=== PATIENT | male | born 1960 | race African-American/Black ===

== ENCOUNTER 2019-04-28 22:57 | Emergency (ER) | payer OTHER ==
[2019-04-28 23:29] LABS: Absolute Lymphocytes (CBC) 3.9 K/uL (0.7-4.9); Basophils % 1.2 % (0-1.3); Hematocrit 47.7 % (39.6-49.0); MPV 7.6 fL (7.6-11.3); RBC Red Blood Cell Count 5.36 M/uL (4.33-5.43)
[2019-04-28 23:35] LABS: Protime INR 0.96
[2019-04-28 23:49] LABS: BUN Blood Urea Nitrogen 13 mg/dL (7-18); Bicarbonate 27 mmol/L (21-32); Glucose Level 99 mg/dL (74-106); Sodium Level 139 mmol/L (136-145); Troponin (Emerg Dept Use Only) < 0.02 ng/mL (0.0-0.045)
[2019-04-29] MEDS ORDERED: ASPIRIN 81 MG CHEWABLE TABLET ONE (00:34)
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
[2019-04-29 03:13] VITALS: TEMP 98.2
[2019-04-29 03:16] VITALS: BP 120/83; O2SAT 100
--- NOTE | 2019-04-29 05:30 | EKG ---
Test Date: 2019-04-28 Test Time: 23:21:21 Commercial Sales Specialist: KANDI MEASUREMENT RESULTS: Intervals: Rate: 78 VT: 188 QRSD: 96 QT: 362 QTc: 412 [place]: P: 67 VT: 188 QRS: 44 T: 105 INTERPRETIVE STATEMENTS: Normal sinus rhythm Normal ECG Compared to ECG 10/28/2017 00:38:59 no significant change from previous ECG Electronically Signed On 04-29-19 05:29:44 CDT by Abisai Sanchez
--- NOTE | 2019-04-29 08:17 | RAD REPORT ---
EXAM DESCRIPTION: Geoff Single View04/28/2019 11:35 pm CLINICAL HISTORY: Chest pain COMPARISON: 2013 FINDINGS: The lungs appear clear of acute infiltrate. The heart is normal size. Left hemidiaphragm remains elevated
--- NOTE | 2019-04-29 10:31 | RAD REPORT ---
EXAM DESCRIPTION: CT - Ct Stroke Brain Wo Cont - 04/29/2019 5:37 am CLINICAL HISTORY: NUMBNESS COMPARISON: None. TECHNIQUE: CT HEAD WITHOUT IV CONTRAST on 04/28/2019 11:17 PM CDT This exam was performed according to our departmental dose-optimization program, which includes autom ated exposure control, adjustment of the mA and/or kV according to patient size and/or use of iterati ve reconstruction technique. FINDINGS: There is no acute hemorrhage, mass effect or midline shift. Allen-white differentiation is preserved. There is no hydrocephalus. There is no significant volume loss for age. The calvarium is intact. Orbits and globes are unremarkable. The paranasal sinuses are clear. Mastoid air cells are clear. IMPRESSION: No acute intracranial findings. Electronically signed by: Didier Malik MD 04/28/2019 11:40 PM CDT Due to temporary technical issues with the PACS/Fluency reporting system, reports are being signed by the in house radiologist as a courtesy to ensure prompt reporting. The interpreting radiologist is f ully responsible for the content of the report.
== END 2019-04-29 02:16 | disposition short-term general hospital (02) ==
LOC: ER 22:57
DX: I63.9 Cerebral infarction, unspecified (principal); I10 Essential (primary) hypertension; R29.701 NIHSS score 1; E11.9 Type 2 diabetes mellitus without complications; E78.00 Pure hypercholesterolemia, unspecified; F31.9 Bipolar disorder, unspecified
CPT/HCPCS: 36415; 70450; 71045; 80048; 82962; 84484; 85025; 85610; 85730; 93005; 99285

== ENCOUNTER 2019-09-28 10:45 | Emergency (ER) | payer OTHER ==
--- OUTSIDE RECORDS SUMMARY | 2019-09-28 10:47 | XMS REPORT ---
:1960 Author Organization [facility] Address [address] [place] [address] Care Team Providers Name Role Phone REAGAN TO Unavailable Unavailable Problems This patient has no known problems. Allergies, Adverse Reactions, Alerts This patient has no known allergies or adverse reactions. Medications This patient has no known medications. Results Test Description Test Time Test Comments Text Results Atomic Results Result Comments POCT-GLUCOSE METER 2019-04-30 09:12:00 Test Item Value Reference Range Comments POC-GLUCOSE METER (BEAKER) (test 194 mg/dL 70-110 TESTED AT [place] [id number] [facility] goor=[id number]) [facility] [id number] POCT-GLUCOSE [id number] 21:24:00 Test Item Value Reference Range Comments POC-GLUCOSE METER (BEAKER) 145 mg/dL 70-110 TESTED AT [address] (test yzpe=0977) [facility] [id number] MR, BRAIN, WITHOUT [id number] 19:11:00FINAL REPORT MR, BRAIN, WITHOUT CONTRAST, MR, MRA, NECK, WITHOUT IV CONTRAST,MR, MRA , BRAIN, WITHOUT CONTRAST INDICATION: TIA, initial screening TECHNIQUE: Multiplanar, multisequence MR images of the brain. 3-D time of flight MRA of the cranial and cervical circulation. 2-D time of flight MRA of the neck. 3D MIP angiographic post-processing was performed. Stenosis evaluation utilized NASCET criteria. COMPARISON: Noncontrast brain CT of the same date FINDINGS: MRI BRAIN: Brain parenchyma is normal in morphology. Midline structures are normally developed. No restricted diffusion to suggest recent ischemic insult. No abnormal susceptibility. Scattered T2/FLAIR hyperintense foci within the periventricular and subcortical white matter are nonspecific, however, statistically represent chronic microvascular ischemic changes. No hydrocephalus. Orbits are within normal limits. No obstructive paranasal sinus disease. Additional findings: None. MRA BRAIN:Internal carotid arteries: Normal flow related enhancement without flow-limiting stenosisMiddle cerebral arteries : Normal flow related enhancement within the bilateral MCA M1-M2 segments without flow limiting stenosisAnteriorcerebral arteries: Normal flow-related enhancement within the bilateral SAYRA A1-A2 segments without flow limiting stenosisBasilar system: Normal flow-related enhancement within the bilateral V4 segmentsand the basilar artery without flow-limiting stenosis Posterior cerebral arteries: Normal flow-related enhancement within the bilateral [employer] P1- P2 segments without flow-limiting stenosisAdditional findings: None. MRA NECK: Common carotid arteries: Unremarkable. Bifurcations: No flow-limiting stenosis.Cervical internal carotid arteries: No flow limiting stenosis.Vertebral arteries: Origins are not well-seen. No flow limiting stenosis within the visualized cervical vertebral arterial segments. Limited assessment of the V3 segment secondary to noncontrast technique. IMPRESSION: No acute ischemia or parenchymal hemorrhage. No flow limiting stenosis in the major branch vessels of the cervical or cranial circulation. Signed: Vanna Camacho MDReport Verified Date/Time: 04/29/2019 19:11:42 Reading Location: [address] Neuro Reading Room MR, MRA, BRAIN, WITHOUT [id number] 19:11: 00FINAL REPORT MR, BRAIN, WITHOUT CONTRAST, MR, MRA, NECK , WITHOUT IV CONTRAST,MR, MRA, BRAIN, WITHOUT CONTRAST INDICATION: TIA, initial screening TECHNIQUE: Multiplanar, multisequence MR images of the brain. 3-D time of flight MRA of the cranial and cervical circulation. 2-D time of flight MRA of the neck. 3D MIP angiographic post-processing was performed. Stenosis evaluation utilized NASCET criteria. COMPARISON: Noncontrast brain CT of the same date FINDINGS: MRI BRAIN: Brain parenchyma is normal in morphology. Midline structures are normally developed. No restricted diffusion to suggest recent ischemic insult. No abnormal susceptibility. Scattered T2/FLAIR hyperintense foci within the periventricular and subcortical white matter are nonspecific, however, statistically represent chronic microvascular ischemic changes. No hydrocephalus. Orbits are within normal limits. No obstructive paranasal sinus disease. Additional findings: None. MRA BRAIN:Internal carotid arteries: Normal flow related enhancement without flow-limiting stenosisMiddle cerebral arteries: Normal flow related enhancement within the bilateral MCA M1- M2 segments without flow limiting stenosisAnteriorcerebral arteries: Normal flow -related enhancement within the bilateral SAYRA A1-A2 segments without flow limiting stenosisBasilar system: Normal flow-related enhancement within the bilateral V4 segmentsand the basilar artery without flow-limiting stenosis Posterior cerebral arteries: Normal flow-related enhancement within the bilateral [employer] P1-P2 segments without flow-limiting stenosisAdditional findings : None. MRA NECK:Common carotid arteries: Unremarkable. Bifurcations: No flow- limiting stenosis.Cervical internal carotid arteries: No flow limiting stenosis.Vertebral arteries: Origins are not well-seen. No flow limiting stenosis within the visualized cervical vertebral arterial segments. Limited assessment of the V3 segment secondary to noncontrast technique. IMPRESSION: No acute ischemia or parenchymal hemorrhage. No flow limiting stenosis in the major branch vessels of the cervical or cranial circulation. Signed: Vanna Camacho MDReport Verified Date/Time: 04/29/2019 19:11:42 Reading Location: [address] Neuro Reading Room MR, MRA, NECK, WITHOUT IV [id number] 19:11: 00FINAL REPORT MR, BRAIN, WITHOUT CONTRAST, MR, MRA, NECK , WITHOUT IV CONTRAST,MR, MRA, BRAIN, WITHOUT CONTRAST INDICATION: TIA, initial screening TECHNIQUE: Multiplanar, multisequence MR images of the brain. 3-D time of flight MRA of the cranial and cervical circulation. 2-D time of flight MRA of the neck. 3D MIP angiographic post-processing was performed. Stenosis evaluation utilized NASCET criteria. COMPARISON: Noncontrast brain CT of the same date FINDINGS: MRI BRAIN: Brain parenchyma is normal in morphology. Midline structures are normally developed. No restricted diffusion to suggest recent ischemic insult. No abnormal susceptibility. Scattered T2/FLAIR hyperintense foci within the periventricular and subcortical white matter are nonspecific, however, statistically represent chronic microvascular ischemic changes. No hydrocephalus. Orbits are within normal limits. No obstructive paranasal sinus disease. Additional findings: None. MRA BRAIN:Internal carotid arteries: Normal flow related enhancement without flow-limiting stenosisMiddle cerebral arteries: Normal flow related enhancement within the bilateral MCA M1- M2 segments without flow limiting stenosisAnteriorcerebral arteries: Normal flow -related enhancement within the bilateral SAYRA A1-A2 segments without flow limiting stenosisBasilar system: Normal flow-related enhancement within the bilateral V4 segmentsand the basilar artery without flow-limiting stenosis Posterior cerebral arteries: Normal flow-related enhancement within the bilateral [employer] P1-P2 segments without flow-limiting stenosisAdditional findings : None. MRA NECK:Common carotid arteries: Unremarkable. Bifurcations: No flow- limiting stenosis.Cervical internal carotid arteries: No flow limiting stenosis.Vertebral arteries: Origins are not well-seen. No flow limiting stenosis within the visualized cervical vertebral arterial segments. Limited assessment of the V3 segment secondary to noncontrast technique. IMPRESSION: No acute ischemia or parenchymal hemorrhage. No flow limiting stenosis in the major branch vessels of the cervical or cranial circulation. Signed: Vanna Camacho Verified Date/Time: 04/29/2019 19:11:42 Reading Location: [address] Neuro Reading Room POCT-GLUCOSE [id number] 17:21:00 Test Item Value Reference Range Comments POC-GLUCOSE METER (BEAKER) 82 mg/dL 70-110 TESTED AT [address] (test dkxo=1406) [facility] [address] POCT-GLUCOSE [id number] 11:55:00 Test Item Value Reference Range Comments POC-GLUCOSE METER (BEAKER) 130 mg/dL 70-110 TESTED AT [address] (test uutu=8856) [facility] [address] [id number] 11:06:00 Test Item Value Reference Range Comments RPR SCREEN (BEAKER) (test hhxs=382) Nonreactive Nonreactive T4, [id number] 09:15:00 Test Item Value Reference Range Comments FREE T4 (BEAKER) (test ugzm=388) 1.19 ng/dL 0.70-1.48 HEMOGLOBIN [id number] 09:02:00 Test Item Value Reference Range Comments HEMOGLOBIN A1C (BEAKER) (test lbgb=412) 9.7 % 4.3-6.1 C-REACTIVE [id number] 07:45:00 Test Item Value Reference Range Comments C-REACTIVE PROTEIN (BEAKER) (test vuxr=932) 0.21 mg/dL 0.00-0.50 FastingLIPID [id number] 07:30:00 Test Item Value Reference Range Comments TRIGLYCERIDES (BEAKER) (test sdsg=317) 108 mg/dL CHOLESTEROL (BEAKER) (test jncx=043) 174 mg/dL HDL CHOLESTEROL (BEAKER) (test mfke=093) 43 mg/dL LDL CHOLESTEROL CALCULATED (BEAKER) (test 109 mg/dL lhqb=574) Triglyceride Reference Range: Low Risk <150 Borderline 150- 199 High Risk 200-499 Very High Risk >=500Cholesterol Reference Range: Low Risk <200 Borderline 200-239 High Risk > 240HDL Cholesterol Reference Range: Low Risk >=60 High Risk <40LDL Cholesterol Reference Range: Optimal <100 Near Optimal 100-129 Borderline 130-159 High 160-189 Very High >=190 FastingBASIC METABOLIC [id number] 07:30:00 Test Item Value Reference Range Comments SODIUM (BEAKER) (test 137 meq/L 136-145 croz=649) POTASSIUM (BEAKER) (test 4.0 meq/L 3.5-5.1 sekd=321) CHLORIDE (BEAKER) (test 106 meq/L 98-107 rope=956) CO2 (BEAKER) (test 24 meq/L 22-29 wthp=472) BLOOD UREA NITROGEN 12 mg/dL 7-21 (BEAKER) (test odmp=218) CREATININE (BEAKER) (test 0.70 mg/dL 0.57-1.25 eqsl=378) GLUCOSE RANDOM (BEAKER) 87 mg/dL 70-105 (test wgxj=519) CALCIUM (BEAKER) (test 8.9 mg/dL 8.4-10.2 vqcz=607) EGFR (BEAKER) (test 139 mL/min/1.73 sq m ESTIMATED GFR IS NOT uyem=3677) ACCURATE CREATININE CLEARANCE IN PREDICTING GLOMERULAR FILTRATION RATE. ESTIMATED GFR IS NOT APPLICABLE FOR DIALYSIS PATIENTS. FastingHEPATIC FUNCTION [id number] 07:30:00 Test Item Value Reference Range Comments TOTAL PROTEIN (BEAKER) (test cqzc=662) 7.0 gm/dL 6.0-8.3 ALBUMIN (BEAKER) (test qpsc=6764) 3.5 g/dL 3.5-5.0 BILIRUBIN TOTAL (BEAKER) (test bbhn=645) 0.4 mg/dL 0.2-1.2 BILIRUBIN DIRECT (BEAKER) (test cdyf=291) 0.2 mg/dL 0.1-0.5 ALKALINE PHOSPHATASE (BEAKER) (test bhqm=815) 53 U/L 40-150 AST (SGOT) (BEAKER) (test ytrk=203) 21 U/L 5-34 ALT (SGPT) (BEAKER) (test xiut=907) 42 U/L 6-55 [id number] 07:22:00 Test Item Value Reference Range Comments HOMOCYSTEINE (BEAKER) (test lxwx=816) 8.2 umol/L 5.1-15.4 TSH/FREE T4 IF [id number] 07:21:00 Test Item Value Reference Range Comments THYROID STIMULATING HORMONE (BEAKER) (test 0.00 uIU/mL 0.35-4.94 nljb=355) VITAMIN B12 AND [id number] 07:03:00 Test Item Value Reference Range Comments VITAMIN B12 (BEAKER) (test isgt=488) 295 pg/mL 213-816 FOLATE (BEAKER) (test syhz=215) 16.3 ng/mL >=7.0 TROPONIN [id number] 06:25:00 Test Item Value Reference Range Comments TROPONIN I (BEAKER) (test mpim=743) < ng/mL 0.00-0.03 Troponin I (TnI) levels must be interpreted in the context of the presenting symptoms and the clinical findings. Elevated TnI levels indicate myocardial damage, but are not specific for ischemic heart disease. Elevated TnI levels are seen in patients with other cardiac conditions (including myocarditis and congestive heart failure), and slight TnI elevations occur in patients with other conditions, including sepsis, renal failure, acidosis, acute neurological disease, and persistent tachyarrhythmia.FastingPROTHROMBIN [id number] 05 :45:00 Test Item Value Reference Range Comments PROTIME (BEAKER) (test tyye=471) 13.5 seconds 11.9-14.2 INR (BEAKER) (test wiun=212) 1.1 <=5.9 Effective 02/17/2019: PT Reference Range ChangeNew: 11.9-14.2 Previous: 11.7- 14.7RECOMMENDED COUMADIN/WARFARIN INR THERAPY RANGESSTANDARD DOSE: 2.0-3.0 Includes: PROPHYLAXIS for venous thrombosis, systemic embolization; TREATMENT for venous thrombosis and/or pulmonary embolus.HIGH RISK: Target INR is2.5-3.5 for patients wiht mechanical heart valves.CBC W/PLT COUNT & AUTO [id number] 05:42:00 Test Item Value Reference Range Comments WHITE BLOOD CELL COUNT (BEAKER) (test zczd=167) 9.2 K/ L 3.5-10.5 RED BLOOD CELL COUNT (BEAKER) (test vjlh=250) 5.04 M/ L 4.63-6.08 HEMOGLOBIN (BEAKER) (test jjub=390) 14.6 GM/DL 13.7-17.5 HEMATOCRIT (BEAKER) (test gbqw=510) 46.2 % 40.1-51.0 MEAN CORPUSCULAR VOLUME (BEAKER) (test ejnx=772) 91.7 fL 79.0-92.2 MEAN CORPUSCULAR HEMOGLOBIN (BEAKER) (test 29.0 pg 25.7-32.2 rawv=348) MEAN CORPUSCULAR HEMOGLOBIN CONC (BEAKER) (test 31.6 GM/DL 32.3-36.5 qejf=871) RED CELL DISTRIBUTION WIDTH (BEAKER) (test 13.4 % 11.6-14.4 goue=994) PLATELET COUNT (BEAKER) (test aumk=350) 328 K/CU MM 150-450 MEAN PLATELET VOLUME (BEAKER) (test snro=041) 9.1 fL 9.4-12.4 NUCLEATED RED BLOOD CELLS (BEAKER) (test 0 /100 WBC 0-0 mdex=696) NEUTROPHILS RELATIVE PERCENT (BEAKER) (test 47 % dkow=830) LYMPHOCYTES RELATIVE PERCENT (BEAKER) (test 42 % klpi=017) MONOCYTES RELATIVE PERCENT (BEAKER) (test 9 % fipo=175) EOSINOPHILS RELATIVE PERCENT (BEAKER) (test 2 % ofqa=111) BASOPHILS RELATIVE PERCENT (BEAKER) (test 1 % frvp=122) NEUTROPHILS ABSOLUTE COUNT (BEAKER) (test 4.28 K/ L 1.78-5.38 ueji=901) LYMPHOCYTES ABSOLUTE COUNT (BEAKER) (test 3.82 K/ L 1.32-3.57 nzfo=402) MONOCYTES ABSOLUTE COUNT (BEAKER) (test 0.79 K/ L 0.30-0.82 vijd=047) EOSINOPHILS ABSOLUTE COUNT (BEAKER) (test 0.21 K/ L 0.04-0.54 aizq=223) BASOPHILS ABSOLUTE COUNT (BEAKER) (test 0.06 K/ L 0.01-0.08 veic=937) IMMATURE GRANULOCYTES-RELATIVE PERCENT (BEAKER) 0 % 0-1 (test fpaw=8188)
[2019-09-28] MEDS ORDERED: OXYMETAZOLINE HCL 0.05% 15ML NAS ONE (11:13)
--- NOTE | 2019-09-28 11:56 | EDPHYS ---
Physician Documentation [facility] Name: Pee Lopez Age: 59 yrs Sex: Male : 1960 Arrival Date: 09/28/2019 Time: 10:47 Bed 25 Private MD: ED Physician Mandeep Davila HPI: 09/28 21:51 This 59 yrs old Black Male presents to ER via Ambulatory with complaints of Nose Bleed. tw4 21:51 The patient presents with a nose bleed, that is apparently anterior, from the left tw4 nare. Onset: The symptoms/episode began/occurred. 21:51 Onset: The symptoms/episode began/occurred 3 day(s) ago. Modifying factors: The tw4 symptoms are alleviated by nothing. the symptoms are aggravated by nothing. Severity of symptoms: At their worst the symptoms were mild in the emergency department the symptoms have improved. The patient has not experienced similar symptoms in the past. Historical: - Allergies: 11: No Known Allergies; iw - Home Meds: 11:08 Baslugar 8 unit twice a day [Active]; lisinopril 20 mg Oral tab 1 tab once daily iw [Active]; aspirin 81 mg Oral TbEC 1 tab once daily [Active]; glimepiride 1 mg Oral tab 2 tabs three times a day [Active]; rivastigmine 4.6 mg/24 hr transdermal pt24 1 patch once daily [Active]; metformin 500 mg Oral tab 1 tab 2 times per day [Active]; atorvastatin 10 mg oral tab 1 tab once daily [Active]; fluoxetine 20 mg Oral cap 1 cap once daily [Active]; Novolog 100 unit/mL Sub-Q soln [Active]; - PMHx: 11:08 benign tremors; Bipolar disorder; Diabetes - IDDM; High Cholesterol; Hypertension; TIA; iw bowel obstruction; - 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 - Social history:: Smoking status: Patient/guardian denies using tobacco. - Ebola Screening: : Patient negative for fever greater than or equal to 101.5 degrees Fahrenheit, and additional compatible Ebola Virus Disease symptoms Patient denies exposure to infectious person Patient denies travel to an Ebola-affected area in the 21 days before illness onset No symptoms or risks identified at this time. ROS: 21:51 Constitutional: Negative for fever, chills, and weight loss, Eyes: Negative for injury, tw4 pain, redness, and discharge, Cardiovascular: Negative for chest pain, palpitations, and edema, Respiratory: Negative for shortness of breath, cough, wheezing, and pleuritic chest pain, Abdomen/GI: Negative for abdominal pain, nausea, vomiting, diarrhea, and constipation, Back: Negative for injury and pain, MS/Extremity: Negative for injury and deformity, Skin: Negative for injury, rash, and discoloration. 21:51 ENT: Positive for nose bleed, Negative for injury or acute deformity, drainage from ear(s), ear pain, Gum pain hearing loss, pulling at ears, Teeth pain tinnitus. Exam: 21:51 Constitutional: This is a well developed, well nourished patient who is awake, alert, tw4 and in no acute distress. Head/Face: Normocephalic, atraumatic. 21:51 ENT: Nose: bleeding, is seen from the left nare, and is minimal, clotted blood, in left nare. Vital Signs: 11:08 BP 137 / 101; Pulse 79; Resp 16 S; Temp 98.0; Pulse Ox 97% on R/A; Weight 104.33 kg; iw Height 5 ft. 11 in. (180.34 cm); 12:09 BP 123 / 88; Pulse 82; Resp 18; Pulse Ox 97% on R/A; aj1 11:08 Body Mass Index 32.08 (104.33 kg, 180.34 cm) iw Procedures: 21:51 Epistaxis treatment: A small amount of bleeding noted from Treated using rhino rocket, tw4 Bleeding stopped. MDM: 10:55 Patient medically screened. tw4 21:51 Differential diagnosis: trauma, sinusitis, epistaxis r/t trauma, spontaneous epistaxis. tw4 Data reviewed: vital signs, nurses notes. Counseling: I had a detailed discussion with the patient and/or guardian regarding: the historical points, exam findings, and any diagnostic results supporting the discharge/admit diagnosis. Administered Medications: 11:30 Drug: Afrin Drops (0.05 %) 1 sprays Route: Intranasal; Site: both nares; aj1 12:11 Follow up: Response: No adverse reaction aj1 Disposition: 09/28/19 11:53 Discharged to Home. Impression: Epistaxis. - Condition is Stable. - Discharge Instructions: Nosebleed, Adult. - Medication Reconciliation Form, Thank You Letter, Antibiotic Education, Prescription Opioid Use form. - Follow up: Vivi Henderson MD; When: Upon discharge from the Emergency Department; Reason: Recheck today's complaints, Continuance of care. - Problem is new. - Symptoms have improved. Signatures: Drea Funez RN RN aj1 Carmen Metcalf RN RN iw Wadley, Terrence, MD MD tw4 Corrections: (The following items were deleted from the chart) 12:11 11:53 09/28/2019 11:53 Discharged to Home. Impression: Epistaxis. Condition is Stable. aj1 Forms are Medication Reconciliation Form, Thank You Letter, Antibiotic Education, Prescription Opioid Use. Follow up: Vivi Henderson; When: Upon discharge from the Emergency Department; Reason: Recheck today's complaints, Continuance of care. Problem is new. Symptoms have improved. tw4
--- NOTE | 2019-09-28 11:56 | ER ---
Nurse's Notes [facility] Name: Pee Lopez Age: 59 yrs Sex: Male : 1960 Arrival Date: 09/28/2019 Time: 10:47 Bed 25 Private MD: Diagnosis: Epistaxis Presentation: 09/28 11:00 Presenting complaint: Patient states: nose bleed X 3 days, couldn't get it to stop iw today, left nostril, takes ASA daily but stopped 2 days ago after nose started bleeding. Transition of care: patient was not received from another setting of care. Onset of symptoms was September 25, 2019. Risk Assessment: Do you want to hurt yourself or someone else?. Initial Sepsis Screen: Does the patient meet any 2 criteria? No. Patient's initial sepsis screen is negative. Does the patient have a suspected source of infection? No. Patient's initial sepsis screen is negative. Care prior to arrival: None. 11:00 Method Of Arrival: Ambulatory iw 11:00 Acuity: VINCE 4 iw Historical: - Allergies: 11:08 No Known Allergies; iw - Home Meds: 11:08 Baslugar 8 unit twice a day [Active]; lisinopril 20 mg Oral tab 1 tab once daily iw [Active]; aspirin 81 mg Oral TbEC 1 tab once daily [Active]; glimepiride 1 mg Oral tab 2 tabs three times a day [Active]; rivastigmine 4.6 mg/24 hr transdermal pt24 1 patch once daily [Active]; metformin 500 mg Oral tab 1 tab 2 times per day [Active]; atorvastatin 10 mg oral tab 1 tab once daily [Active]; fluoxetine 20 mg Oral cap 1 cap once daily [Active]; Novolog 100 unit/mL Sub-Q soln [Active]; - PMHx: 11:08 benign tremors; Bipolar disorder; Diabetes - IDDM; High Cholesterol; Hypertension; TIA; iw bowel obstruction; - 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 - Social history:: Smoking status: Patient/guardian denies using tobacco. - Ebola Screening: : Patient negative for fever greater than or equal to 101.5 degrees Fahrenheit, and additional compatible Ebola Virus Disease symptoms Patient denies exposure to infectious person Patient denies travel to an Ebola-affected area in the 21 days before illness onset No symptoms or risks identified at this time. Screenin:22 Abuse screen: Denies threats or abuse. Denies injuries from another. Nutritional aj1 screening: No deficits noted. Tuberculosis screening: No symptoms or risk factors identified. 12:10 Fall Risk None identified. aj1 Assessment: 11:22 General: Appears in no apparent distress. Behavior is calm, cooperative, appropriate aj1 for age. Pain: Denies pain. Neuro: Level of Consciousness is awake, alert, obeys commands, Oriented to person, place, time, situation. Cardiovascular: Patient's skin is warm and dry. Cardiovascular:. Respiratory: Airway is patent Respiratory effort is even, unlabored, Respiratory pattern is regular, symmetrical. GI: No signs and/or symptoms were reported involving the gastrointestinal system. : No signs and/or symptoms were reported regarding the genitourinary system. EENT: Reports intermittent nose bleed for the past 3 days, no bleeding noted at this time. Derm: No signs and/or symptoms reported regarding the dermatologic system. Skin is pink, warm \\T\\ dry. normal. Musculoskeletal: No signs and/or symptoms reported regarding the musculoskeletal system. Circulation, motion, and sensation intact. 12:00 Reassessment: Dr Davila at bedside to insert nasal packing. aj1 Vital Signs: 11:08 BP 137 / 101; Pulse 79; Resp 16 S; Temp 98.0; Pulse Ox 97% on R/A; Weight 104.33 kg; iw Height 5 ft. 11 in. (180.34 cm); 12:09 BP 123 / 88; Pulse 82; Resp 18; Pulse Ox 97% on R/A; aj1 11:08 Body Mass Index 32.08 (104.33 kg, 180.34 cm) iw ED Course: 10:47 Patient arrived in ED. as 10:55 Mandeep Davila MD is Attending Physician. tw4 10:56 Patient has correct armband on for positive identification. Bed in low position. Call jp3 light in reach. Side rails up X 1. Verbal reassurance given. Pulse ox on. NIBP on. 11:03 Drea Funez, MIGEL is Primary Nurse. aj1 11:04 Triage completed. iw 11:08 Diet: Patient given water. Tolerated well. jp3 11:09 patient given water to "gargle" and rinse back of throat out. Patient reported the jp3 "gargling" helped clear their throat out. 11:22 No provider procedures requiring assistance completed. aj1 11:53 Vivi Henderson MD is Referral Physician. tw4 12:10 Arm band placed on. aj1 12:10 Patient did not have IV access during this emergency room visit. aj1 Administered Medications: 11:30 Drug: Afrin Drops (0.05 %) 1 sprays Route: Intranasal; Site: both nares; aj1 12:11 Follow up: Response: No adverse reaction aj1 Outcome: 11:53 Discharge ordered by . tw4 12:10 Discharged to home ambulatory. aj1 12:10 Condition: good 12:10 Discharge instructions given to patient, Instructed on discharge instructions, follow up and referral plans. Patient was instructed to go straight to Dr. Henderson's office Demonstrated understanding of instructions, follow-up care. 12:11 Patient left the ED. aj1 Signatures: Drea Funez, RN RN Angle Price Irene, RN Mandeep Subramanian MD MD tw4 Deejay Heath jp3
[2019-09-28 12:27] VITALS: TEMP 98; O2SAT 97
[2019-09-28 12:29] VITALS: BP 123/88
== END 2019-09-28 12:11 | disposition home or self-care (01) ==
LOC: ER 10:45
PROC: 2Y41X5Z Packing of Nasal Region using Packing Material (ICD-10-PCS; principal; 2019-09-28)
DX: R04.0 Epistaxis (principal); I10 Essential (primary) hypertension; E11.9 Type 2 diabetes mellitus without complications; E78.00 Pure hypercholesterolemia, unspecified; Z86.73 Personal history of transient ischemic attack (TIA), and cerebral infarction without residual deficits
CPT/HCPCS: 30901; 99283

== ENCOUNTER 2019-09-28 18:12 | Emergency (ER) | payer OTHER ==
--- OUTSIDE RECORDS SUMMARY | 2019-09-28 18:14 | XMS REPORT ---
:1960 [facility] Address [address] [place] [address] Care Team Providers Name Role Phone REAGAN [...] (BEAKER) (test 194 mg/dL 70-110 TESTED AT [place] [id number] [facility] [id number]=[id number]) [facility] [address] POCT-GLUCOSE [id number] 21:24:00 Test Item Value Reference Range Comments POC-GLUCOSE METER (BEAKER) 145 mg/dL 70-110 TESTED AT [address] (test ybga=3697) [facility] [address] MR, BRAIN, WITHOUT [id number] 19:11:00FINAL REPORT MR, BRAIN, WITHOUT CONTRAST, MR, [...] arteries: Normal flow-related enhancement within the bilateral BLOCKER HAND P1- P2 segments without flow-limiting stenosisAdditional findings: [...] MDReport Verified Date/Time: 04/29/2019 19:11:42 Reading Location: [address] Neuro Reading Room MR, MRA, BRAIN, WITHOUT [id number] 19:11: 00FINAL REPORT MR, BRAIN, WITHOUT CONTRAST, [...] arteries: Normal flow-related enhancement within the bilateral BLOCKER HAND P1-P2 segments without flow-limiting stenosisAdditional findings : [...] MDReport Verified Date/Time: 04/29/2019 19:11:42 Reading Location: [address] Neuro Reading Room MR, MRA, NECK, WITHOUT IV [id number] 19:11: 00FINAL REPORT MR, BRAIN, WITHOUT CONTRAST, [...] arteries: Normal flow-related enhancement within the bilateral BLOCKER HAND P1-P2 segments without flow-limiting stenosisAdditional findings : [...] Camacho Verified Date/Time: 04/29/2019 19:11:42 Reading Location: [address] Neuro Reading Room POCT-GLUCOSE [id number] 17:21:00 Test Item Value Reference Range Comments POC-GLUCOSE METER (BEAKER) 82 mg/dL 70-110 TESTED AT [address] (test xtji=6420) [facility] [address] POCT-GLUCOSE [id number] 11:55:00 Test Item Value Reference Range Comments POC-GLUCOSE METER (BEAKER) 130 mg/dL 70-110 TESTED AT [address] (test nqys=4621) [facility] [address] [id number] 11:06:00 Test Item Value Reference Range Comments RPR SCREEN (BEAKER) (test yoel=453) Nonreactive Nonreactive T4, [id number] 09:15:00 Test Item Value Reference Range Comments FREE T4 (BEAKER) (test vqte=585) 1.19 ng/dL 0.70-1.48 HEMOGLOBIN [id number] 09:02:00 Test Item Value Reference Range Comments HEMOGLOBIN A1C (BEAKER) (test goyx=550) 9.7 % 4.3-6.1 C-REACTIVE [id number] 07:45:00 Test Item Value Reference Range Comments C-REACTIVE PROTEIN (BEAKER) (test bcmb=479) 0.21 mg/dL 0.00-0.50 FastingLIPID [id number] 07:30:00 Test Item Value Reference Range Comments TRIGLYCERIDES (BEAKER) (test mvwy=032) 108 mg/dL CHOLESTEROL (BEAKER) (test ldbq=480) 174 mg/dL HDL CHOLESTEROL (BEAKER) (test gdei=279) 43 mg/dL LDL CHOLESTEROL CALCULATED (BEAKER) (test 109 mg/dL mfgw=996) Triglyceride Reference Range: Low Risk <150 Borderline 150- 199 High Risk 200-499 Very High Risk >=500Cholesterol Reference Range: Low Risk <200 Borderline 200-239 High Risk > 240HDL Cholesterol Reference Range: Low Risk >=60 High Risk <40LDL Cholesterol Reference Range: Optimal <100 Near Optimal 100-129 Borderline 130-159 High 160-189 Very High >=190 FastingBASIC METABOLIC [id number] 07:30:00 Test Item Value Reference Range Comments SODIUM (BEAKER) (test 137 meq/L 136-145 gssm=678) POTASSIUM (BEAKER) (test 4.0 meq/L 3.5-5.1 kpov=008) CHLORIDE (BEAKER) (test 106 meq/L 98-107 qrnr=046) CO2 (BEAKER) (test 24 meq/L 22-29 qtex=555) BLOOD UREA NITROGEN 12 mg/dL 7-21 (BEAKER) (test ivjv=795) CREATININE (BEAKER) (test 0.70 mg/dL 0.57-1.25 jqtw=417) GLUCOSE RANDOM (BEAKER) 87 mg/dL 70-105 (test dhvm=809) CALCIUM (BEAKER) (test 8.9 mg/dL 8.4-10.2 hrog=503) EGFR (BEAKER) (test 139 mL/min/1.73 sq m ESTIMATED GFR IS NOT rffa=7551) ACCURATE CREATININE CLEARANCE IN PREDICTING GLOMERULAR FILTRATION RATE. ESTIMATED GFR IS NOT APPLICABLE FOR DIALYSIS PATIENTS. FastingHEPATIC FUNCTION [id number] 07:30:00 Test Item Value Reference Range Comments TOTAL PROTEIN (BEAKER) (test zxtz=207) 7.0 gm/dL 6.0-8.3 ALBUMIN (BEAKER) (test msbq=8662) 3.5 g/dL 3.5-5.0 BILIRUBIN TOTAL (BEAKER) (test kydm=934) 0.4 mg/dL 0.2-1.2 BILIRUBIN DIRECT (BEAKER) (test fujg=375) 0.2 mg/dL 0.1-0.5 ALKALINE PHOSPHATASE (BEAKER) (test efhl=491) 53 U/L 40-150 AST (SGOT) (BEAKER) (test bpjc=717) 21 U/L 5-34 ALT (SGPT) (BEAKER) (test sarj=527) 42 U/L 6-55 [id number] 07:22:00 Test Item Value Reference Range Comments HOMOCYSTEINE (BEAKER) (test wjck=245) 8.2 umol/L 5.1-15.4 TSH/FREE T4 IF [id number] 07:21:00 Test Item Value Reference Range Comments THYROID STIMULATING HORMONE (BEAKER) (test 0.00 uIU/mL 0.35-4.94 wxme=616) VITAMIN B12 AND [id number] 07:03:00 Test Item Value Reference Range Comments VITAMIN B12 (BEAKER) (test fmwu=628) 295 pg/mL 213-816 FOLATE (BEAKER) (test dhfo=445) 16.3 ng/mL >=7.0 TROPONIN [id number] 06:25:00 Test Item Value Reference Range Comments TROPONIN I (BEAKER) (test pwjf=087) < ng/mL 0.00-0.03 Troponin I (TnI) levels [...] acidosis, acute neurological disease, and persistent tachyarrhythmia.FastingPROTHROMBIN [id number] 05 :45:00 Test Item Value Reference Range Comments PROTIME (BEAKER) (test ldar=435) 13.5 seconds 11.9-14.2 INR (BEAKER) (test qltr=054) 1.1 <=5.9 Effective 02/17/2019: PT Reference Range ChangeNew: 11.9-14.2 Previous: 11.7- 14.7RECOMMENDED COUMADIN/WARFARIN INR THERAPY RANGESSTANDARD DOSE: 2.0-3.0 Includes: PROPHYLAXIS for venous thrombosis, systemic embolization; TREATMENT for venous thrombosis and/or pulmonary embolus.HIGH RISK: Target INR is2.5-3.5 for patients wiht mechanical heart valves.CBC W/PLT COUNT & AUTO [id number] 05:42:00 Test Item Value Reference Range Comments WHITE BLOOD CELL COUNT (BEAKER) (test vnua=356) 9.2 K/ L 3.5-10.5 RED BLOOD CELL COUNT (BEAKER) (test eguc=609) 5.04 M/ L 4.63-6.08 HEMOGLOBIN (BEAKER) (test dmik=392) 14.6 GM/DL 13.7-17.5 HEMATOCRIT (BEAKER) (test nijo=948) 46.2 % 40.1-51.0 MEAN CORPUSCULAR VOLUME (BEAKER) (test saqy=570) 91.7 fL 79.0-92.2 MEAN CORPUSCULAR HEMOGLOBIN (BEAKER) (test 29.0 pg 25.7-32.2 lguq=192) MEAN CORPUSCULAR HEMOGLOBIN CONC (BEAKER) (test 31.6 GM/DL 32.3-36.5 fvqm=014) RED CELL DISTRIBUTION WIDTH (BEAKER) (test 13.4 % 11.6-14.4 isfm=636) PLATELET COUNT (BEAKER) (test beki=731) 328 K/CU MM 150-450 MEAN PLATELET VOLUME (BEAKER) (test ggdg=933) 9.1 fL 9.4-12.4 NUCLEATED RED BLOOD CELLS (BEAKER) (test 0 /100 WBC 0-0 ienz=046) NEUTROPHILS RELATIVE PERCENT (BEAKER) (test 47 % quvl=145) LYMPHOCYTES RELATIVE PERCENT (BEAKER) (test 42 % owgd=943) MONOCYTES RELATIVE PERCENT (BEAKER) (test 9 % xxgf=458) EOSINOPHILS RELATIVE PERCENT (BEAKER) (test 2 % vjuz=186) BASOPHILS RELATIVE PERCENT (BEAKER) (test 1 % aonk=371) NEUTROPHILS ABSOLUTE COUNT (BEAKER) (test 4.28 K/ L 1.78-5.38 pxhf=484) LYMPHOCYTES ABSOLUTE COUNT (BEAKER) (test 3.82 K/ L 1.32-3.57 sigo=952) MONOCYTES ABSOLUTE COUNT (BEAKER) (test 0.79 K/ L 0.30-0.82 plge=560) EOSINOPHILS ABSOLUTE COUNT (BEAKER) (test 0.21 K/ L 0.04-0.54 cgdi=404) BASOPHILS ABSOLUTE COUNT (BEAKER) (test 0.06 K/ L 0.01-0.08 ozqj=624) IMMATURE GRANULOCYTES-RELATIVE PERCENT (BEAKER) 0 % 0-1 (test yngg=4685)
[2019-09-28 18:49] LABS: Absolute Lymphocytes (CBC) 3.1 K/uL (0.7-4.9); Basophils % 0.1 % (0-1.3); Hematocrit 42.5 % (39.6-49.0); RBC Red Blood Cell Count 4.81 M/uL (4.33-5.43)
[2019-09-28] MEDS ORDERED: PHENYLEPHRINE 0.5% NOSE 15ML NAS ONE (18:51)
[2019-09-28 18:52] LABS: Protime INR 1.04
[2019-09-28 19:07] LABS: Albumin 3.1 g/dL (3.4-5.0); Bilirubin Total 0.4 mg/dL (0.2-1.0); Potassium 4.3 mmol/L (3.5-5.1); Protein, Total 7.4 g/dL (6.4-8.2)
[2019-09-28] MEDS ORDERED: TRANEXAMIC ACID 1,000 MG/10 ML VIAL IV ONE (19:25)
--- NOTE | 2019-09-28 20:59 | ER ---
Nurse's Notes [facility] Name: Pee Lopez Age: 59 yrs Sex: Male : 1960 Arrival Date: 09/28/2019 Time: 18:15 Bed 27 Private MD: Jim Hernandez R Diagnosis: Epistaxis Presentation: 09/28 18:17 Presenting complaint: Patient states: "I was here earlier for a nose bleed and they put aa5 this thing in my nose but I am still bleeding around it". Pt denies taking anticoagulants. Pt states "also my stools have been dark". Transition of care: patient was not received from another setting of care. Onset of symptoms was September 2019. Risk Assessment: Do you want to hurt yourself or someone else? Patient reports no desire to harm self or others. Initial Sepsis Screen: Does the patient meet any 2 criteria? No. Patient's initial sepsis screen is negative. Does the patient have a suspected source of infection? No. Patient's initial sepsis screen is negative. Care prior to arrival: None. 18:17 Acuity: VINCE 3 aa5 18:17 Method Of Arrival: Ambulatory aa5 Triage Assessment: 21:12 General: Behavior is calm. 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 - Social history:: Smoking status: Patient/guardian denies using tobacco. - Ebola Screening: : No symptoms or risks identified at this time. Screenin:12 Abuse screen: Denies threats or abuse. Denies injuries from another. Nutritional rv screening: No deficits noted. Tuberculosis screening: No symptoms or risk factors identified. Fall Risk None identified. Assessment: 20:00 General: Appears in no apparent distress. rv 20:00 Pain: Complains of pain in head. Neuro: Level of Consciousness is awake, alert, obeys rv commands, Oriented to person, place, time, situation. Cardiovascular: Patient's skin is warm and dry. Respiratory: Airway is patent. EENT: Nares with bleeding noted on right on left. Vital Signs: 18:19 BP 145 / 84; Pulse 91; Resp 18 S; Temp 98.5(TE); Pulse Ox 96% on R/A; Weight 104.33 kg aa5 (R); Height 5 ft. 11 in. (180.34 cm) (R); 21:13 BP 138 / 86; Pulse 87; Resp 18; Pulse Ox 97% on R/A; rv 18:19 Body Mass Index 32.08 (104.33 kg, 180.34 cm) aa5 ED Course: 18:15 Patient arrived in ED. mr 18:15 Jim Hernandez MD is Private Physician. mr 18:17 Arm band placed on. aa5 18:18 Triage completed. aa5 18:32 Mandeep Bernard MD is Attending Physician. tw4 19:29 Bg Ross, MIGEL is Primary Nurse. rv 20:55 Jim Hernandez MD is Referral Physician. tw4 20:55 Vivi Henderson MD is Referral Physician. tw4 21:12 Patient has correct armband on for positive identification. media monitor on. Pulse rv ox on. NIBP on. 21:12 Assist provider with nosebleed control using Afrin sprays, Bleeding from left nare. Set rv up for procedure. Performed by Mandeep Beranrd MD Bleeding stopped. Patient tolerated well. Patient did not have IV access during this emergency room visit. Administered Medications: 20:10 Drug: Tranexamic Acid 2000 mg {Note: DR BERNARD SOAKED THE GAUZE WITH THE TRANEXAMIC rv ACID AND USED IT NASAL PACKING.} Route: Intranasal; Site: left nare; 21:13 Follow up: Response: No adverse reaction rv Outcome: 20:55 Discharge ordered by . tw4 21:13 Discharged to home ambulatory, with family. rv 21:13 Condition: good 21:13 Discharge instructions given to patient, Instructed on discharge instructions, follow up and referral plans. Demonstrated understanding of instructions, follow-up care. 21:13 Patient left the ED. rv Signatures: Nisha MakShelly, RN RN aa5 Mandeep Bernard MD MD tw4 Bg Ross RN RN rv
--- NOTE | 2019-09-28 21:00 | EDPHYS ---
Physician Documentation [facility] Name: Pee Lopez Age: 59 yrs Sex: Male : 1960 Arrival Date: 09/28/2019 Time: 18:15 Bed 27 Private MD: Jim Hernandez R ED Physician Mandeep Bernard HPI: 09/28 20:19 This 59 yrs old Black Male presents to ER via Ambulatory with complaints of Nose Bleed. tw4 20:19 The patient presents with a nose bleed, that is apparently anterior, from the left tw4 nare, from both nares. Onset: The symptoms/episode began/occurred just prior to arrival. Modifying factors: The symptoms are alleviated by nothing. the symptoms are aggravated by nothing. Associated signs and symptoms: The patient has no apparent associated signs or symptoms. The patient has been recently seen at the [facility] Emergency Department, today. The patient has been recently seen by a physician: Dr. Henderson earlier today. 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 - Social history:: Smoking status: Patient/guardian denies using tobacco. - Ebola Screening: : No symptoms or risks identified at this time. ROS: 20:19 Constitutional: Negative for fever, chills, and weight loss, Eyes: Negative for injury, tw4 pain, redness, and discharge. 20:19 Cardiovascular: Negative for chest pain, palpitations, and edema, Respiratory: Negative for shortness of breath, cough, wheezing, and pleuritic chest pain, Abdomen/GI: Negative for abdominal pain, nausea, vomiting, diarrhea, and constipation, Back: Negative for injury and pain, Neuro: Negative for headache, weakness, numbness, tingling, and seizure. 20:19 ENT: Positive for nose bleed. Exam: 20:19 Constitutional: This is a well developed, well nourished patient who is awake, alert, tw4 and in no acute distress. Head/Face: Normocephalic, atraumatic. 20:19 ENT: Nose: bleeding, is seen from the left nare, and is minimal, clotted blood, in left nare. Vital Signs: 18:19 BP 145 / 84; Pulse 91; Resp 18 S; Temp 98.5(TE); Pulse Ox 96% on R/A; Weight 104.33 kg aa5 (R); Height 5 ft. 11 in. (180.34 cm) (R); 21:13 BP 138 / 86; Pulse 87; Resp 18; Pulse Ox 97% on R/A; rv 18:19 Body Mass Index 32.08 (104.33 kg, 180.34 cm) aa5 Procedures: 21:34 Epistaxis treatment: A small amount of bleeding noted from both nares. Treated using tw4 Oxymetazoline sprays, traneaxmic acid gauze. MDM: 18:32 Patient medically screened. tw4 21:34 Differential diagnosis: trauma, sinusitis, spontaneous epistaxis. Data reviewed: vital tw4 signs, nurses notes. Data reviewed: lab test result(s), CBC, white blood cell count, hemoglobin, hematocrit, platelets. Data interpreted: Pulse oximetry: Interpretation: normal. Counseling: I had a detailed discussion with the patient and/or guardian regarding: the historical points, exam findings, and any diagnostic results supporting the discharge/admit diagnosis, lab results. Special discussion: I discussed with the patient/guardian in detail that at this point there is no indication for admission to the hospital. It is understood, however, that if the symptoms persist or worsen the patient needs to return immediately for re-evaluation. 09/28 18:33 Order name: CBC with Diff; Complete Time: 19:50 tw4 09/28 18:33 Order name: CMP; Complete Time: 19:50 tw4 09/28 19:50 Interpretation: Normal except: GLUC 220; BUN 22; GFR 89. tw4 09/28 18:33 Order name: PT-INR tw4 09/28 18:33 Order name: Ptt, Activated tw4 Administered Medications: 20:10 Drug: Tranexamic Acid 2000 mg {Note: DR BERNARD SOAKED THE GAUZE WITH THE TRANEXAMIC rv ACID AND USED IT NASAL PACKING.} Route: Intranasal; Site: left nare; 21:13 Follow up: Response: No adverse reaction rv Disposition: 09/28/19 20:55 Discharged to Home. Impression: Epistaxis. - Condition is Stable. - Discharge Instructions: Nosebleed, [id number]. - Medication Reconciliation Form, Thank You Letter, Antibiotic Education, Prescription Opioid Use form. - Follow up: Jim Hernandez MD; When: Upon discharge from the Emergency Department; Reason: Recheck today's complaints, Continuance of care. Follow up: Vivi Henderson MD; When: Upon discharge from the Emergency Department; Reason: Recheck today's complaints, Continuance of care. - Problem is an ongoing problem. - Symptoms have improved. Signatures: Dispatcher [employer] EDMS Shelly Robles, RN RN aa5 Mandeep Bernard MD MD tw4 Bg Ross RN RN rv Corrections: (The following items were deleted from the chart) 21:13 20:55 09/28/2019 20:55 Discharged to Home. Impression: Epistaxis. Condition is Stable. rv Forms are Medication Reconciliation Form, Thank You Letter, Antibiotic Education, Prescription Opioid Use. Follow up: Jim Hernandez; When: Upon discharge from the Emergency Department; Reason: Recheck today's complaints, Continuance of care. Follow up: Vivi Henderson; When: Upon discharge from the Emergency Department; Reason: Recheck today's complaints, Continuance of care. Problem is an ongoing problem. Symptoms have improved. tw4
[2019-09-28 21:23] VITALS: TEMP 98.5
[2019-09-28 21:24] VITALS: BP 138/86; O2SAT 97
== END 2019-09-28 21:13 | disposition home or self-care (01) ==
LOC: ER 18:12
DX: R04.0 Epistaxis (principal)
CPT/HCPCS: 30901; 36415; 80053; 85025; 85610; 85730; 99284

== ENCOUNTER 2020-07-11 18:56 | Emergency (ER) | payer OTHER ==
--- OUTSIDE RECORDS SUMMARY | 2020-07-11 18:59 | XMS REPORT | Clinical Summary ---
:1960 Author Organization [facility] Address [address] [place] [address] Care Team Providers Name Role Phone Unavailable Primary Care Provider Unavailable Allergies No Known Allergies Medications Medication Sig Dispensed Refills Start Date End Date Status metoprolol Take 100 mg by mouth 0 Active (LOPRESSOR) 100 MG daily. tablet glimepiride Take 2 mg by mouth 4 0 Active (AMARYL) 2 MG (four) times daily. tablet lisinopril Take 20 mg by mouth 0 Active (PRINIVIL,ZESTRIL) daily. 20 MG tablet FLUoxetine Take 20 mg by mouth 0 Active (PROZAC) 20 MG daily. tablet diazePAM (VALIUM) Take 5 mg by mouth 0 Active 5 MG tablet every night as needed for Anxiety. primidone Take 50 mg by mouth 0 Active (MYSOLINE) 50 MG daily. tabletIndications: take 3 tabs daily insulin glargine Inject 8-12 Units 0 Active (LANTUS) 100 subcutaneously unit/mL nightly Use as injectionIndicatio directed . ns: takes 8-12 units per blood sugar aspirin 81 MG EC Take 1 tablet (81 mg 30 tablet 5 04/30/2019 0 tablet total) by mouth 0 daily. atorvastatin Take 4 tablets (40 120 tablet 4 04/29/2019 (LIPITOR) 10 MG mg total) by mouth 0 tablet nightly. Active Problems Problem Noted Date TIA (transient ischemic attack) 04/29/2019 Family History Medical History Relation Name Comments Stroke Father Relation Name Status Comments Father Social History Tobacco Use Types Packs/Day Years Used Date Never Smoker Sex Assigned at Date Recorded Not on file Last Filed Vital Signs Not on file Plan of Treatment Not on file Results Not on fileafter 07/11/2019 Insurance Payer Benefit Plan / Subscriber ID Effective Dates Phone Addre ss Type Group [employer] TEX[employer] HMO [id number] 2018-[employer] [place] Contracted ALL t Advance Directives For more information, please contact: [phone] Code Status Date Activated Date Inactivated Comments Partial Code 04/29/2019 5:08 AM 04/30/2019 1:57 PM This code status was determined by: Patient Drug Protocol After Arrest Occurs? No Mechanical Ventilation with Intubation? No Bag/Mask? Yes Internal/External Pacemaker? Yes Transfer to Critical Care? Yes Chest Compressions? No Defibrillation/Cardioversion? No Full Code 04/29/2019 4:48 AM 04/29/2019 5:08 AM This code status was determined by: Patient
--- OUTSIDE RECORDS SUMMARY | 2020-07-11 18:59 | XMS REPORT | Summary of Care ---
:1960 Author Organization [facility] Address [address] [place] [address]- Encounter HQ Sendyr_matty(FIN) [id number] Date(s): 07/04/20 - 07/04/20 [facility] [address] [place] [address]- [phone] Discharge Disposition: Home or Self Care Attending Physician: Alex Dill MD Referring Physician: Alex iDll MD Vital Signs Most recent to oldest [Reference Range]: 1 Height 180.34 cm (07/04/20 11:51 AM) Blood Pressure [90-140/60-90 mmHg] 132/92 mmHg (07/04/20 11:51 AM) Respiratory Rate [14-20 BRMIN] 16 BRMIN (07/04/20 11:51 AM) Peripheral Pulse Rate [60-100 bpm] 100 bpm (07/04/20 11:51 AM) Weight 107.273 kg (07/04/20 11:51 AM) Body Mass Index 32.98 m2 (07/04/20 11:51 AM) Problem List Condition Effective Dates Status Health Status Informant Memory loss(Confirmed) Active Benign hypertension1 Active Benign prostatic hyperplasia2 01/12/08 Active Bipolar disorder3 Active Disorder of pancreas4 03/03/08 Active Hypercholesterolemia5 Active Hyperlipidemia6 Active Imaging of gastrointestinal tract 03/24/08 Active abnormal7 MCI (mild cognitive Active impairment)(Confirmed) 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 Nicotine dependence9 Active [id number] Active Simple obesity(Confirmed) Active Brain TIA(Confirmed) Active Tremor(Confirmed) Active Type 2 diabetes [id number] Active 1Data migrated from [employer] on 02/18/15.2Data migrated from [employer] on 02/18/15.3Data migrated from [employer] on 02/18/15.4Data migrated from [employer] on 02/18/15.5Data migrated from [employer] on 02/18/15.6Data migrated from [employer] on 02/18/15.7Data migrated from [employer] on 02/18/15.8Data migrated from [employer] on 02/18/15.9Data migrated from [employer] on 02/18/15.10Data migrated from [employer] on 02/18/15.11Data migrated from [employer] on 02/18/15. Allergies, Adverse Reactions, Alerts Substance Reaction Severity Status Tegretol Active carBAMazepine1, 2 Active 1Data migrated from [employer] on 01/19/15. Originally documented as CARBAMAZEPINE.2Data migrated from [employer] on 01/19/15. Originally documented as TEGRETOL. Medications rivastigmine 9.5 mg/24 hr transdermal film, extended release = 1 patch, TOP, Daily, TO AREA THAT IS CLEAN/ DRY/ HAIRLESS AND FREE OF REDNESS/ IRRITATION/ ETIENNE/ CUTS., # 30 patch, 6 Refill(s), Pharmacy: [id number], 180.34, cm, 07/04/20 11:51:00 CDT, Height, 107.273, kg, 07/04/20 11:51:00 CDT, W... Start Date: 07/04/20 Stop Date: 01/30/21 Status: Ordered Results No data available for this section Immunizations No data available for this section Procedures No data available for this section Social History Social History Type Response Smoking Status Former smoker; Type: Cigaret rolando; Exposure to Tobacco Smoke None; Cigarette Smoking Last 365 Days No; Reg Smoking Cessation Counseling Yes entered on: 07/04/20 Assessment and Plan No data available for this section
--- OUTSIDE RECORDS SUMMARY | 2020-07-11 18:59 | XMS REPORT | Continuity of Care Document ---
:1960 Author Organization [employer] [facility] Care Team Providers Name Role Phone [employer] [facility] Unavailable Un available Problems Problem Status Onset Classification Date Comments Sourc e Date Reported Imaging of Active Problem 07/07/2020 Data [facility] gastrointestinal tract 008 migrate d Neuro abnormal (finding) from [facility] on 02/18/15. Disease of pancreas Active Problem 07/07/2020 Data [facility] (disorder) 008 migrated Neuro from [facility] on 02/18/15. Benign prostatic Active Problem 07/07/2020 Data Mi de[facility]ra hyperplasia (disorder) 008 migrate d Neuro from [facility] on 02/18/15. Inflammatory disease of Active Problem 07/07/2020 Data [facility] mucous membrane 008 migrated Neur o (disorder) from [facility] on 02/18/15. Amnesia (finding) Active Problem 07/07/2020 [facility] Neuro Benign hypertension Active Problem 07/07/2020 Data [facility] (disorder) migrated Neuro from [facility] on 02/18/15. Bipolar disorder Active Problem 07/07/2020 Data Mi de[facility]ra (disorder) migrated Neuro from [facility] on 02/18/15. Hypercholesterolemia Active Problem 07/07/2020 Data [facility] (disorder) migrated Neuro from [facility] on 02/18/15. Hyperlipidemia Active Problem 07/07/2020 Data Misc her (disorder) migrated Neuro from [facility] on 02/18/15. Nicotine dependence Active Problem 07/07/2020 Data [facility] (disorder) migrated Neuro from [facility] on 02/18/15. Proteinuria (finding) Active Problem 07/07/2020 Data [facility] migrated Neuro from [facility] on 02/18/15. Simple obesity Active Problem 07/07/2020 [facility] her (disorder) Neuro Transient ischemic Active Problem 07/07/2020 [facility] attack (disorder) Ne uro Diabetes mellitus type Active Problem 07/07/2020 Data [facility] 2 (disorder) migrated Neuro from [facility] on 02/18/15. Tremor (finding) Active Problem 07/07/2020 [facility] Neuro Impaired cognition Active Problem 07/07/2020 [facility] (finding) Neuro Medications Medication Details Route Status Patient Ordering Order Source Instructions Provider Date 24 HR = 1 patch, Active [facility] rivastigmine TOP, Daily, 020 Neuro 0.396 MG/HR TO AREA THAT Transdermal IS CLEAN/ Patch DRY/ HAIRLESS AND FREE OF REDNESS/ IRRITATION/ ETIENNE/ CUTS., # 30 patch, 6 Refill(s), Pharmacy: [facility] #[id number], 180.34, cm, 07/04/20 11:51:00 CDT, Height, 107.273, kg, 07/04/20 11:51:00 CDT, W... 24 HR = 1 patch, Active [facility] rivastigmine TOP, Daily, 020 Neuro 0.396 MG/HR apply to Transdermal area that is Patch [Exelon] clean/dry/palafox irless & free of redness/irri tation/etienne /cuts, # 30 patch, 4 Refill(s), Pharmacy: [facility] #[id number] 24 HR = 1 patch, Active [facility] rivastigmine TOP, Daily, 019 Neuro 0.396 MG/HR apply to Transdermal area that is Patch [Exelon] clean/dry/palafox irless & free of redness/irri tation/etienne /cuts, # 30 patch, 4 Refill(s), Pharmacy: [facility] #[id number] 24 HR = 1 patch, Active [facility] rivastigmine TOP, Daily, 019 Neuro 0.192 MG/HR apply to Transdermal area that is Patch [Exelon] clean/dry/palafox irless & free of redness/irri tation/etienne /cuts, # 30 patch, 4 Refill(s), Pharmacy: [facility] #[id number] Aspirin 81 MG 81 mg = 1 Active [facility] Enteric Coated tab, PO, 019 Neuro Tablet Daily, # 90 tab, 3 Refill(s) atorvastatin 10 40 mg = 4 Active Mische r mg oral tablet tab, PO, 019 Neuro Daily, 0 Refill(s) bisacodyl 5 mg 10 mg = 2 Active [facility] oral enteric tab, PO, 019 Neuro coated tablet Daily, PRN Constipation , # 20 tab, 0 Refill(s) diazepam 5 mg 5 mg = 1 Active [facility] oral tablet tab, PO, 019 Neuro Bedtime, 0 Refill(s) FLUoxetine 20 20 mg = 1 Active [facility] mg oral tablet tab, PO, 019 Neuro Daily, # 30 tab, 0 Refill(s) glimepiride 2 2 mg = 1 Active [facility] mg oral tablet tab, PO, 019 Neuro QID, 0 Refill(s) Insulin SUB-Q, Active [facility] Glargine 100 Daily, 0 019 Neuro UNT/ML Refill(s) Injectable Solution Allergies, Adverse Reactions, Alerts Substance Category Reaction Severity Reaction Status Date Comments S ource type Reported Tegretol Assertion Drug Active Misch er allergy Neuro carBAMazepi Assertion Drug Active Data migra murray from [facility] on 01/19/15. Originally documented as CARBAMAZEPINE. [facility] ne<sup>1, allergy Data migrated from [facility] on 01/19/15. Originally documented as TEGRETOL. Neuro 2</sup> Immunizations No Data Provided for This Section Results No Data Provided for This Section Pathology Reports No Data Provided for This Section Diagnostic Reports No Data Provided for This Section Consultation Notes No Data Provided for This Section Discharge Summaries No Data Provided for This Section History and Physicals No Data Provided for This Section Vital Signs Vital Sign Value Date Comments Source Systolic (mm Hg) 132 07/04/2020 [facility] Diastolic (mm Hg) 92 07[facility]04[facility] Heart Rate 100 07/04/2020 [facility] Neuro Respitory Rate 16 07/04/2020 [facility] Height 180.34 cm 07/04/2020 [facility] Weight 107.273 07/04/2020 [facility] Neuro BMI Calculated 32.98 07/04/2020 [facility] Neuro Systolic (mm Hg) 127 12/02/2019 [facility] Diastolic (mm Hg) 88 12/02/2019 [facility] Ne uro Heart Rate 83 12/02/2019 [facility] Neuro Respitory Rate 16 12/02/2019 [facility] Height 180.34 cm 12/02/2019 [facility] Neuro Weight 106.818 12/02/2019 [facility] Neuro BMI Calculated 32.84 12/02/2019 [facility] Neuro Systolic (mm Hg) 143 07/29/2019 [facility] Diastolic (mm Hg) 99 07/29/2019 [facility] Ne uro Heart Rate 91 07/29/2019 [facility] Neuro Respitory Rate 16 07/29/2019 [facility] Neuro Height 177.8 cm 07/29/2019 [facility] Neuro Weight 105.455 07/29/2019 [facility] Neuro BMI Calculated 33.36 07/29/2019 [facility] Neuro Systolic (mm Hg) 105 06/17/2019 [facility] Diastolic (mm Hg) 81 06/17/2019 [facility] Ne uro Heart Rate 81 06/17/2019 [facility] Neuro Respitory Rate 16 06/17/2019 [facility] Neuro Height 180.34 cm 06/17/2019 [facility] Neuro Weight 103.636 06/17/2019 [facility] Neuro BMI Calculated 31.87 06/17/2019 [facility] Neuro Encounters Location Location Encounter Encounter Reason Attending ADM [place] Stat us Source Details Type Number For Provider Date Date Visit [facility] [id number] Alex Dill 06/17 06/18 [facility] Neurology Neuro [place] [id number] Alex Joann 07[facility] [id number] Jim 07/29 07/30 [facility] Neurology [place] /2018 Ne uro [place] a Outpatient [id number] Alex Dill 12[facility] [place] [facility] [id number] Alex Dill 12/01 12/02 [facility] Neurology /2019 Neuro [facility] [id number] Alex David 03/22 [facility] [id number] Jim 03/22 03/22 [facility] Neurology Pre[place]Reg [place] /2019 N euro [facility] [id number] Jim 03/22 03/22 [facility] Neurology Pre-Reg [place] /2019 N euro [facility] Outpatient [id number] Alex Dill 03/31 [facility] [place] Out[facility] [id number] Alex Dill 07/04 [facility] [id number] Alex Dill 07/04 07/05 [facility] /2019 Neuro [place] Out[facility] [id number] Alex Dill 01/02 [facility] Procedures No Data Provided for This Section Assessment and Plan No Data Provided for This Section Plan of Care No Data Provided for This Section Social History Social History Date Source Social History TypeResponse 07/04/2020 [facility] Ne[facility] Smoking Status Former smoker; Type: Cigarettes; Exposur e to Tobacco Smoke None; Cigarette Smoking Last 365 Days No; Reg Smoking Cessation Counseling Yes entered on: 07/04/20 Family History No Data Provided for This Section Advance Directives No Data Provided for This Section Functional Status No Data Provided for This Section
--- OUTSIDE RECORDS SUMMARY | 2020-07-11 19:00 | XMS REPORT | Continuity of Care Document ---
:1960 Author Organization [facility] t Address [address] [place] [address] Care Team Providers Name Role Phone Rob Dill Attending Clinician Samina TO Attending Clinician Unavailable Samina TO Admitting Clinician Unavailable Advance Directives Directive Decision Effective Date Termination Date Comments Sour ce Partial Code This Yes 2019-04-29 2019-04-30 [facility] - code status was 00:00:00 00:00:00 Medical C enter determined by: Patient Drug Protocol After Arrest Occurs? No Mechanical Ventilation with Intubation? No Bag/Mask? Yes Internal/External Pacemaker? Yes Transfer to Critical Care? Yes Chest Compressions? No Defibrillation/Card ioversion? No Problems Condition Condition Condition Status Onset Resolution Last Treating Co mments Source Name Details Category Date Date Treatment Clinician Date Imaging of Problem Active 2020-07-07 [facility] gastrointe 7-03 01:26:11 l stinal Imaging 00:00: [place] tract of 00 abnormal gastrointe (finding) stinal tract abnormal (finding) Active 03/24/2008 Problem 07/07/2020 Data migrated from [facility] on 02/18/15. [facility] Disease of Problem Active 2020-07-07 [facility] pancreas 6-12 01:26:11 l (disorder) Disease 00:00: Her pierre of 00 pancreas (disorder) Active 03/03/2008 Problem 07/07/2020 Data migrated from [facility] on 02/18/15. [facility] Benign Problem Active 2020-07-07 [facility] prostatic 4-22 01:26:11 l hyperplasi Benign 00:00: Herm wendy a prostatic 00 (disorder) hyperplasi a (disorder) Active 01/12/2008 Problem 07/07/2020 Data migrated from [employer] on 02/18/15. [facility] Inflammato Problem Active 2007-0 2020-07-07 M emoria ry disease 01-11 01:26:11 l of mucous 00:00: Krystian membrane Inflammato 00 (disorder) ry disease of mucous membrane (disorder) Active 01/12/2008 Problem 07/07/2020 Data migrated from [employer] on 02/18/15. [facility] Amnesia Problem Active 2020-07-07 Moises chio (finding) 01:26:11 l Amnesia [place] (finding) Active Problem 07/07/2020 [facility] Benign Problem Active 2020-07-07 Mem[facility] hypertensi 01:26:11 l on Benign Krystian (disorder) hypertensi on (disorder) Active Problem 07/07/2020 Data migrated from [employer] on 02/18/15. [facility] Bipolar Problem Active 2020-07-07 Moises chio disorder 01:26:11 l (disorder) Bipolar Her pierre disorder (disorder) Active Problem 07/07/2020 Data migrated from [employer] on 02/18/15. [facility] Hyperchole Problem Active 2020-07-07 M emoria sterolemia 01:26:11 l (disorder) Adalberto n Hyperchole sterolemia (disorder) Active Problem 07/07/2020 Data migrated from [employer] on 02/18/15. [facility] Hyperlipid Problem Active 2020-07-07 M emoria emia 01:26:11 l (disorder) Adalberto n Hyperlipid emia (disorder) Active Problem 07/07/2020 Data migrated from [employer] on 02/18/15. [facility] Nicotine Problem Active 2020-07-07 Mem oria dependence 01:26:11 l (disorder) Nicotine He rmann dependence (disorder) Active Problem 07/07/2020 Data migrated from [employer] on 02/18/15. [facility] Proteinuri Problem Active 2020-07-07 M emoria a 01:26:11 l (finding) Krystian Proteinuri a (finding) Active Problem 07/07/2020 Data migrated from [employer] on 02/18/15. [facility] Simple Problem Active 2020-07-07 Mem[facility] ia obesity 01:26:11 l (disorder) Simple Herm wendy obesity (disorder) Active Problem 07/07/2020 [facility] Transient Problem Active 2020-07-07 Me moria ischemic 01:26:11 l attack [place] (disorder) Transient ischemic attack (disorder) Active Problem 07/07/2020 [facility] Diabetes Problem Active 2020-07-07 Mem oria mellitus 01:26:11 l type 2 Diabetes Adalberto n (disorder) mellitus type 2 (disorder) Active Problem 07/07/2020 Data migrated from [facility] on 02/18/15. [facility] Tremor Problem Active 2020-07-07 Memor ia (finding) 01:26:11 l Tremor Krystian (finding) Active Problem 07/07/2020 [facility] Impaired Problem Active 2020-07-07 Mem oria cognition 01:26:11 l (finding) Impaired Her pierre cognition (finding) Active Problem 07/07/2020 [facility] Allergies, Adverse Reactions, Alerts Allergy Allergy Status Severity Reaction(s) Onset Inactive Treating Comm ents Source Name Type Date Date Clinician carBAMaz carBAMaz Active Memori a epine<corona epine<corona l p>1, p>1, Krystian 2</sup> 2</sup> Family History Family Member Diagnosis Comments Start Date Stop Date Source Natural father Stroke [facility] Social History Social Habit Start Date Stop Date Quantity Comments Source Sex Assigned At [facility] Smoking Status Start Date Stop Date Source Social History 2020-07-04 16:54:14 2020-07-04 16:54:14 [facility] Krystian Never smoker [facility] Medications Ordered Filled Start Stop Current Ordering Indication Dosage Frequency Signature Comments Components Source Medication Medication Date Date Medication? Clinician (SIG) Name Name 24 HR 2019-09 Yes = 1 patch, Memori a rivastigmin 0-13 TOP, l e 0.396 17:06: Daily, TO Ana nn MG/HR 00 AREA THAT Transdermal IS CLEAN/ Patch DRY/ HAIRLESS AND FREE OF REDNESS/ IRRITATION / ETIENNE/ CUTS., # 30 patch, 6 Refill(s), Pharmacy: [facility][id number], 180.34, cm, 07/04/20 11:51:00 CDT, Height, 107.273, kg, 07/04/20 11:51:00 CDT, W... 24 HR 2019- Yes = 1 patch, Memori a rivastigmin 3-12 TOP, l e 0.396 20:03: Daily, Krystian MG/HR 00 apply to Transdermal area that Patch is [Exelon] clean/dry/ hairless & free of redness/ir ritation/b urns/cuts, # 30 patch, 4 Refill(s), Pharmacy: [facility] #[id number] 24 HR 2018-09 Yes = 1 patch, Memori a rivastigmin 1-07 TOP, l e 0.396 21:09: Daily, Krystian MG/HR 00 apply to Transdermal area that Patch is [Exelon] clean/dry/ hairless & free of redness/ir ritation/b urns/cuts, # 30 patch, 4 Refill(s), Pharmacy: [facility] #[id number] 24 HR 2018- Yes = 1 patch, Memori a rivastigmin 9-26 TOP, l e 0.192 16:50: Daily, [place] MG/HR 00 apply to Transdermal area that Patch is [Exelon] clean/dry/ hairless & free of redness/ir ritation/b urns/cuts, # 30 patch, 4 Refill(s), Pharmacy: [facility] #[id number] Aspirin 81 2019-0 Yes 81 mg = 1 Me moria MG Enteric 9-26 tab, PO, l Coated 16:15: Daily, # [place] Tablet 00 90 tab, 3 Refill(s) atorvastati 2018- Yes 40 mg = 4 M emoria n 10 mg 9-26 tab, PO, l oral tablet 16:15: Daily, 0 He rmann 00 Refill(s) bisacodyl 5 2019- Yes 10 mg = 2 M emoria mg oral 9-26 tab, PO, l enteric 16:15: Daily, PRN Herm wendy coated 00 Constipati tablet on, # 20 tab, 0 Refill(s) diazepam 5 2018- Yes 5 mg = 1 Mem oria mg oral 9-26 tab, PO, l tablet 16:15: Bedtime, 0 Ana nn 00 Refill(s) FLUoxetine 2018- Yes 20 mg = 1 Me moria 20 mg oral 9- tab, PO, l tablet 16:15: Daily, # Krystian 00 30 tab, 0 Refill(s) glimepiride Yes 2 mg = 1 Me moria 2 mg oral - tab, PO, l tablet 16:15: QID, 0 Krystian 00 Refill(s) Insulin Yes SUB-Q, Memoria Glargine - Daily, 0 l 100 UNT/ML 16:15: Refill(s) He rmann Injectable 00 Solution metoprolol Yes 100mg QD Take [address] [facility] [address] [facility] (LOPRESSOR) 8-09 mg by [facility] - 100 MG 11:57: mouth Medical tablet 57 daily. Center glimepiride Yes 2mg Q.25D Take [address] [facility] (AMARYL) 2 809 by mouth 4 Cammy es - MG tablet 11:57: (four) Medica l 57 times Center daily. lisinopril Yes 20mg QD Take [address] [facility] (PRINIVIL,Z 04-30 by mouth [facility] - ESTRIL) 20 11:57: daily. Medic al MG tablet 57 Center FLUoxetine Yes 20mg QD Take [address] [facility] (PROZAC) 20 809 by mouth Luke [facility] - MG tablet 11:57: daily. Medica l 57 Center diazePAM Yes 5mg Take [address] [facility] (VALIUM) 5 09 by mouth [facility] - MG tablet 11:57: every Medical 57 night as Center needed for Anxiety. primidone Yes 50mg QD Take [address] [facility] [address] [facility] (MYSOLINE) 09 by mouth [facility] - 50 MG 11:57: daily. Medical tablet 57 Center insulin Yes 8U QD Inject [facility] glargine 04-30 8-12 Units [facility] - (LANTUS) 11:57: subcutaneo Med ical 100 unit/mL 57 usly Center injection nightly Use as directed . aspirin 81 2020- No 81mg QD Take [address] [facility] MG EC 04-30 08-08 tablet (81 [facility] - tablet 00:00: 23:59 mg total) Medic al 00 :00 by mouth Center daily. atorvastati 2019- No 40mg QD Take [address] [facility] n (LIPITOR) 04-29 tablets [facility] - 10 MG 00:00: 23:59 (40 mg Medical tablet 00 :00 total) by Center mouth nightly. Vital Signs Vital Name Observation Time Observation Value Comments Source Systolic (mm Hg) 2020-07-04 16:51:00 Moises rial [place] Diastolic (mm Hg) 2020-07-04 16:51:00 Mem orial Krystian Heart Rate 2020-07-04 16:51:00 Memorial Krystian Respitory Rate 2020-07-04 16:51:00 Memori al [place]ian Height 2020-07-04 16:51:00 180.34 cm [facility] [place] Weight 2020-07-04 16:51:00 [facility] Krystian BMI Calculated 2020-07-04 16:51:00 Memori al [place] Systolic (mm Hg) 2019-12-02 19:31:00 Moises rial Krystian Diastolic (mm Hg) 2019-12-02 19:31:00 Mem orial [place]rystian Heart Rate 2019-12-02 19:31:00 [facility] [place] Respitory Rate 2019-12-02 19:31:00 Memori al [place] Height 2019-12-02 19:31:00 180.34 cm [facility] Krystian Weight 2019-12-02 19:31:00 [facility] [place] BMI Calculated 2019-12-02 19:31:00 Memori al [place] Systolic (mm Hg) 2019-07-29 20:56:00 Moises rial [place] Diastolic (mm Hg) 2019-07-29 20:56:00 Mem orial [place] Heart Rate 2019-07-29 20:56:00 [facility] [place] Respitory Rate 2019-07-29 20:56:00 Memori al Krystian Height 2019-07-29 20:56:00 177.8 cm [facility] [place]ian Weight 2019-07-29 20:56:00 [facility] [place] BMI Calculated 2019-07-29 20:56:00 Memori al [place]ian Systolic (mm Hg) 2019-06-17 15:55:00 Moises rial Krystian Diastolic (mm Hg) 2019-06-17 15:55:00 Mem orial [place] Heart Rate 2019-06-17 15:55:00 [facility] [place] Respitory Rate 2019-06-17 15:55:00 Memori al [place] Height 2019-06-17 15:55:00 180.34 cm Carson Boland Weight 2019-06-17 15:55:00 [facility] Krystian BMI Calculated 2019-06-17 15:55:00 Yimi Russell Procedures This patient has no known procedures. Encounters Start End Encounter Admission Attending Care Care Encounter Source Date/Time Date/Time Type Type Clinicians Facility Department ID 2020-07-04 2020-07-04 [facility] [id number] 11:45:00 23:59:59 Alex 12 Rob 2020-03-22 2020-03-22 [facility] [id number] 14:15:00 14:15:00 Alex 10 Rob 2020-03-22 2020-03-22 [facility] [id number] 14:15:00 14:15:00 Alex 11 Rob 2019-12-02 2019-12-02 [facility] [id number] 14:45:00 23:59:59 Alex 09 Rob 2019-07-29 2019-07-29 [facility] [id number] 14:45:00 23:59:59 Alex 08 Rob 2019-06-17 2019-06-17 [facility] [id number] 11:00:00 23:59:59 Alex 07 Rob Results Test Description Test Time Test Comments Results Result Comments Source POCT-GLUCOSE METER 2019-04-30 09:12:00 Test Item Value Reference Range Interpretation Comme nts POC-GLUCOSE METER ([employer]) (test 194 mg/dL 70-110 H TESTED AT [facility] [address] [facility] [place] code = 1538) [facility] 7703 0 POCT-GLUCOSE [id number] 21:24:00 Test Item Value Reference Range Interpretation Comments POC-GLUCOSE METER 145 mg/dL 70-110 H TESTED AT [facility] [address] ([employer]) (test code = BERTNE R [facility] 1538) [id number] MR, BRAIN, WITHOUT [id number] 19:11:00FINAL REPORT MR, BRAIN, WITHOUT CONTRAST, MR, MRA, NECK, WITHOUT IV CONTRAST,MR, MRA, BRAIN, WITHOUT CONTRAST [...] segments without flow limiting stenosisAnteriorcerebral arteries: Normal flow- related enhancement within the bilateral SAYRA A1-A2 segments without flow limiting stenosisBasilar system: Normal flow-related enhancement within the bilateral V4 segmentsand the basilar artery without flow-limiting stenosis Posterior cerebral arteries: Normal flow-related enhancement within the bilateral [employer] P1-P2 segments without flow-limiting stenosisAdditional findings: None. MRA NECK:Common carotid arteries: Unremarkable. Bifurcations: [...] of the cervical or cranial circulation. Signed: Dori Camacho MDReport Verified Date/Time: 04/29/2019 19:11:42 Reading Location: [address] Neuro Reading Room MR, MRA, BRAIN, WITHOUT [id number] 19:11:00 FINAL REPORT MR, BRAIN, WITHOUT CONTRAST, MR, MRA, NECK, WITHOUT IV CONTRAST,MR, MRA, BRAIN, WITHOUT CONTRAST [...] Normal flow-related enhancement within the bilateral [employer] P1-P2 segments without flow-limiting stenosisAdditional findings: None. MRA NECK:Common carotid arteries: Unremarkable. Bifurcations: [...] of the cervical or cranial circulation. Signed: Dori Camacho MDReport Verified Date/Time: 04/29/2019 19:11:42 Reading Location: [address] Neuro Reading Room MR, MRA, NECK, WITHOUT IV [id number] 19:11:00 FINAL REPORT MR, BRAIN, WITHOUT CONTRAST, MR, MRA, NECK, WITHOUT IV CONTRAST,MR, MRA, BRAIN, WITHOUT CONTRAST [...] Normal flow-related enhancement within the bilateral [employer] P1-P2 segments without flow-limiting stenosisAdditional findings: None. MRA NECK:Common carotid arteries: Unremarkable. Bifurcations: [...] of the cervical or cranial circulation. Signed: Dori Camacho Verified Date/Time: 04/29/2019 19:11:42 Reading Location: [address] Neuro Reading Room POCT-GLUCOSE [id number] 17:21:00 Test Item Value Reference Range Interpretation Comments POC-GLUCOSE METER 82 mg/dL 70-110 TESTED AT [place] [address] [facility] (test code = GIAN Bell [facility] [address] 1538) POCT-GLUCOSE [id number] 11:55:00 Test Item Value Reference Range Interpretation Comments POC-GLUCOSE METER 130 mg/dL 70-110 H TESTED AT [place] [address] [facility] (test code = GIAN [place] 1538) [id number] 11:06:00 Test Item Value Reference Range Interpretation Comments RPR SCREEN (BEAKER) (test code = Nonreactive Nonreactive 420) T4, [id number] 09:15:00 Test Item Value Reference Range Interpretation Comments FREE T4 (BEAKER) (test code = 655) 1.19 ng/dL 0.70-1.48 HEMOGLOBIN [id number] 09:02:00 Test Item Value Reference Range Interpretation Comments HEMOGLOBIN A1C (BEAKER) (test code = 9.7 % 4.3-6.1 H 368) C-REACTIVE [id number] 07:45:00 Test Item Value Reference Range Interpretation Comments C-REACTIVE PROTEIN (BEAKER) (test 0.21 mg/dL 0.00-0.50 code = 676) FastingLIPID [id number] 07:30:00 Test Item Value Reference Range Interpretation Comments TRIGLYCERIDES (BEAKER) (test code = 108 mg/dL 540) CHOLESTEROL (BEAKER) (test code = 174 mg/dL 631) HDL CHOLESTEROL (BEAKER) (test code 43 mg/dL = 976) LDL CHOLESTEROL CALCULATED (BEAKER) 109 mg/dL (test code = 633) Triglyceride Reference Range: Low Risk <150 Borderline 150-199 High Risk 200-499 Very High Risk >=500Cholesterol Reference Range: Low Risk <200 Borderline 200-239 High Risk >240HDL Cholesterol Reference Range: Low Risk >=60 High Risk <40LDL Cholesterol Reference Range: Optimal <100 Near Optimal 100-129 Borderline 130-159 High 160-189 Very High >=190 FastingBASIC METABOLIC [id number] 07:30:00 Test Item Value Reference Range Interpretation Comments SODIUM (BEAKER) 137 meq/L 136-145 (test code = 381) POTASSIUM (BEAKER) 4.0 meq/L 3.5-5.1 (test code = 379) CHLORIDE (BEAKER) 106 meq/L 98-107 (test code = 382) CO2 (BEAKER) (test 24 meq/L 22-29 code = 355) BLOOD UREA NITROGEN 12 mg/dL 7-21 (BEAKER) (test code = 354) CREATININE (BEAKER) 0.70 mg/dL 0.57-1.25 (test code = 358) GLUCOSE RANDOM 87 mg/dL 70-105 (BEAKER) (test code = 652) CALCIUM (BEAKER) 8.9 mg/dL 8.4-10.2 (test code = 697) EGFR (BEAKER) (test 139 mL/min/1.73 ESTIM ATED GFR IS code = 1092) sq m NOT ACCURATE CREATININE CLEARANCE IN PREDICTING GLOMERULAR FILTRATION RATE . ESTIMATED GFR I S NOT APPLICABLE FOR DIALYSIS PATIEN TS. FastingHEPATIC FUNCTION [id number] 07:30:00 Test Item Value Reference Range Interpretation Comments TOTAL PROTEIN (BEAKER) (test code = 7.0 gm/dL 6.0-8.3 770) ALBUMIN (BEAKER) (test code = 1145) 3.5 g/dL 3.5-5.0 BILIRUBIN TOTAL (BEAKER) (test code 0.4 mg/dL 0.2-1.2 = 377) BILIRUBIN DIRECT (BEAKER) (test 0.2 mg/dL 0.1-0.5 code = 706) ALKALINE PHOSPHATASE (BEAKER) (test 53 U/L 40-150 code = 346) AST (SGOT) (BEAKER) (test code = 21 U/L 5-34 353) ALT (SGPT) (BEAKER) (test code = 42 U/L 6-55 347) [id number] 07:22:00 Test Item Value Reference Range Interpretation Comments HOMOCYSTEINE (BEAKER) (test code = 8.2 umol/L 5.1-15.4 642) TSH/FREE T4 IF [id number] 07:21:00 Test Item Value Reference Range Interpretation Comments THYROID STIMULATING HORMONE 0.00 uIU/mL 0.35-4.94 L (BEAKER) (test code = 772) VITAMIN B12 AND [id number] 07:03:00 Test Item Value Reference Range Interpretation Comments VITAMIN B12 (BEAKER) (test code = 295 pg/mL 213-816 774) FOLATE (BEAKER) (test code = 362) 16.3 ng/mL >=7.0 TROPONIN [id number] 06:25:00 Test Item Value Reference Range Interpretation Comments TROPONIN I (BEAKER) (test code = 397) < ng/mL 0.00-0.03 Troponin I (TnI) levels [...] acidosis, acute neurological disease, and persistent tachyarrhythmia.FastingPROTHROMBIN [id number] 05:45:00 Test Item Value Reference Range Interpretation Comments PROTIME (BEAKER) (test code = 13.5 seconds 11.9-14.2 759) INR (BEAKER) (test code = 370) 1.1 <=5.9 Effective 02/17/2019: PT Reference Range ChangeNew: 11.9-14.2 Previous: 11.7- 14.7RECOMMENDED COUMADIN/WARFARIN INR THERAPY RANGESSTANDARD DOSE: 2.0-3.0 Includes: PROPHYLAXIS for venous thrombosis, systemic embolization; TREATMENT for venous thrombosis and/or pulmonary embolus.HIGH RISK: Target INR is2.5-3.5 for patients wiht mechanical heart valves.CBC W/PLT COUNT & AUTO [id number] 05:42:00 Test Item Value Reference Range Interpretation Comments WHITE BLOOD CELL COUNT (BEAKER) 9.2 K/ L 3.5-10.5 (test code = 775) RED BLOOD CELL COUNT (BEAKER) 5.04 M/ L 4.63-6.08 (test code = 761) HEMOGLOBIN (BEAKER) (test code = 14.6 GM/DL 13.7-17.5 410) HEMATOCRIT (BEAKER) (test code = 46.2 % 40.1-51.0 411) MEAN CORPUSCULAR VOLUME (BEAKER) 91.7 fL 79.0-92.2 (test code = 753) MEAN CORPUSCULAR HEMOGLOBIN 29.0 pg 25.7-32.2 (BEAKER) (test code = 751) MEAN CORPUSCULAR HEMOGLOBIN CONC 31.6 GM/DL 32.3-36.5 L (BEAKER) (test code = 752) RED CELL DISTRIBUTION WIDTH 13.4 % 11.6-14.4 (BEAKER) (test code = 412) PLATELET COUNT (BEAKER) (test 328 K/CU MM 150-450 code = 756) MEAN PLATELET VOLUME (BEAKER) 9.1 fL 9.4-12.4 L (test code = 754) NUCLEATED RED BLOOD CELLS 0 /100 WBC 0-0 (BEAKER) (test code = 413) NEUTROPHILS RELATIVE PERCENT 47 % (BEAKER) (test code = 429) LYMPHOCYTES RELATIVE PERCENT 42 % (BEAKER) (test code = 430) MONOCYTES RELATIVE PERCENT 9 % (BEAKER) (test code = 431) EOSINOPHILS RELATIVE PERCENT 2 % (BEAKER) (test code = 432) BASOPHILS RELATIVE PERCENT 1 % (BEAKER) (test code = 437) NEUTROPHILS ABSOLUTE COUNT 4.28 K/ L 1.78-5.38 (BEAKER) (test code = 670) LYMPHOCYTES ABSOLUTE COUNT 3.82 K/ L 1.32-3.57 H (BEAKER) (test code = 414) MONOCYTES ABSOLUTE COUNT (BEAKER) 0.79 K/ L 0.30-0.82 (test code = 415) EOSINOPHILS ABSOLUTE COUNT 0.21 K/ L 0.04-0.54 (BEAKER) (test code = 416) BASOPHILS ABSOLUTE COUNT (BEAKER) 0.06 K/ L 0.01-0.08 (test code = 417) IMMATURE GRANULOCYTES-RELATIVE 0 % 0-1 PERCENT (BEAKER) (test code = 3985)
[2020-07-11] MEDS ORDERED: dexAMETHasone 4 MG/ML VIAL ONE (20:36)
--- NOTE | 2020-07-11 20:57 | RAD REPORT ---
EXAM DESCRIPTION: Geoff Single View07/11/2020 8:49 pm CLINICAL HISTORY: Shortness breath COMPARISON: 2019 FINDINGS: Right lung is mildly hazy. The left lung appears clear of acute infiltrate. . The heart is normal size IMPRESSION: Right lung is mildly hazy suspicious for mild pneumonia
[2020-07-11 21:14] LABS: Absolute Lymphocytes (CBC) 2.9 K/uL (0.7-4.9); Basophils % 1.3 % (0-1.3); Hematocrit 46.6 % (39.6-49.0); Lymphocytes % 37.8 % (15.3-44.8); MPV 8.2 fL (7.6-11.3); RBC Red Blood Cell Count 5.37 M/uL (4.33-5.43)
[2020-07-11] MEDS ORDERED: Levofloxacin 750mg IV 750 MG/150 ML BAG IV ONE (21:47)
[2020-07-11 21:54] LABS: BUN Blood Urea Nitrogen 14 mg/dL (7-18); Bicarbonate 24 mmol/L (21-32); Glucose Level 126 mg/dL (74-106); Potassium 4.2 mmol/L (3.5-5.1); Sodium Level 138 mmol/L (136-145); Troponin (Emerg Dept Use Only) < 0.02 ng/mL (0.0-0.045)
--- NOTE | 2020-07-11 22:01 | ER ---
Nurse's Notes [facility] Name: Pee Lopez Age: 59 yrs Sex: Male : 1960 Arrival Date: 07/11/2020 Time: 18:58 Bed 8 Private MD: Jim Hernandez R Diagnosis: Pneumonia, unspecified organism;Coronavirus infection, unspecified Presentation: 07/11 19:28 Chief complaint: Patient states: Found out 6 days ago he was covid positive. Fevers ll1 have resolved. SOB and low O2 at home for 2 days. Oxygen down to 86% at times. Slight cough. No N/V/D. Coronavirus screen: Client denies travel out of the [place] in the last 14 days. cough unrelated to allergies, fatigue, Client presents with at least one sign or symptom that may indicate coronavirus-19. Standard/surgical mask placed on the client. Client reports previous positive COVID test result. Ebola Screen: Patient denies travel to an Ebola-affected area in the 21 days before illness onset. Initial Sepsis Screen: Does the patient meet any 2 criteria? No. Patient's initial sepsis screen is negative. Does the patient have a suspected source of infection? Yes: Productive cough/pneumonia. Risk Assessment: Do you want to hurt yourself or someone else? Patient reports no desire to harm self or others. Onset of symptoms was July 03, 2020. 19:28 Method Of Arrival: Ambulatory 1 19:28 Acuity: VINCE 3 ll1 Triage Assessment: 20:00 Respiratory: Onset: The symptoms/episode began/occurred gradually, the patient reports wh symptoms have resolved. 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 - Social history:: Smoking status: Patient denies any tobacco usage or history of. - Family history:: not pertinent. - Hospitalizations: : No recent hospitalization is reported. Screenin:00 Abuse screen: Denies threats or abuse. Denies injuries from another. Nutritional wh screening: No deficits noted. Tuberculosis screening: No symptoms or risk factors identified. Fall Risk None identified. Assessment: 19:45 General: Appears in no apparent distress. Behavior is calm, cooperative, appropriate wh for age. Pain: Denies pain. Neuro: Level of Consciousness is awake, alert, obeys commands, Oriented to person, place, time, situation, Appropriate for age. Cardiovascular: Heart tones S1 S2 Rhythm is regular. Respiratory: Reports shortness of breath cough that is Airway is patent Respiratory effort is even, unlabored, Respiratory pattern is regular, symmetrical, tachypnea Breath sounds are clear. GI: Abdomen is flat, non-distended. : No signs and/or symptoms were reported regarding the genitourinary system. EENT: No signs and/or symptoms were reported regarding the EENT system. Derm: Skin is intact, is healthy with good turgor, Skin is pink, warm \T\ dry. normal. Musculoskeletal: Circulation, motion, and sensation intact. 21:00 Reassessment: Patient appears in no apparent distress at this time. No changes from previously documented assessment. Patient and/or family updated on plan of care and expected duration. Pain level reassessed. Patient is alert, oriented x 3, equal unlabored respirations, skin warm/dry/pink. 22:15 Reassessment: Patient appears in no apparent distress at this time. Patient and/or family updated on plan of care and expected duration. Pain level reassessed. Patient is alert, oriented x 3, equal unlabored respirations, skin warm/dry/pink. Pt with DC order just awaiting Iv Abx to finish. 22:26 Reassessment: D/c pending completion of IV fluids. jb4 Vital Signs: 19:28 BP 145 / 104; Pulse 84; Resp 18; Temp 98.5; Pulse Ox 93% ; Weight 106.59 kg; Height 5 ll1 ft. 11 in. (180.34 cm); 21:00 BP 112 / 76; Pulse 79; Resp 18; Pulse Ox 92% on R/A; wh 22:15 BP 133 / 96; Pulse 78; Resp 18; Pulse Ox 95% on R/A; wh 19:28 Body Mass Index 32.78 (106.59 kg, 180.34 cm) ll1 ED Course: 18:58 Patient arrived in ED. ag5 18:58 Jim Hernandez MD is Private Physician. ag5 19:31 Triage completed. ll1 19:32 Arm band placed on Patient placed in an exam room, on a stretcher. 1 19:50 Chucho Garcia is Primary Nurse. 19:53 Narayan Montoya MD is Attending Physician. rn 20:00 Patient has correct armband on for positive identification. Placed in gown. Bed in low wh position. Call light in reach. Side rails up X 1. Pulse ox on. NIBP on. 20:49 XRAY Chest (1 view) In Process Unspecified. EDPA 21:00 Initial lab(s) drawn, by mt, sent to lab. Inserted saline lock: 20 gauge in left jb4 forearm, using aseptic technique. Blood collected. 23:02 No provider procedures requiring assistance completed. IV discontinued, intact, bleeding controlled, No redness/swelling at site. Administered Medications: 21:00 Drug: Decadron - Dexamethasone 10 mg Route: IVP; Site: left forearm; [facility] 21:25 Follow up: Response: No adverse reaction 21:39 Drug: LevaQUIN 750 mg Volume: 150 ml; Route: IVPB; Infused Over: 90 mins; Site: left wh forearm; 23:01 Follow up: Response: No adverse reaction; IV Status: Completed infusion Outcome: 22:01 Discharge ordered by . rn 23:02 Discharged to home ambulatory. 23:02 Condition: stable 23:02 Discharge instructions given to patient, Instructed on discharge instructions, follow up and referral plans. medication usage, POC Demonstrated understanding of instructions, follow-up care, medications, POC Prescriptions given X 2. 23:02 Patient left the ED. Signatures: Dispatcher [employer] EDPA Narayan Montoya MD MD rn Bryson, James RN RN jb4 Chucho Garcia Yulissa Valle 5 Elizabeth Rede, RN RN ll1
--- NOTE | 2020-07-11 22:01 | EDPHYS ---
Physician Documentation [facility] Name: Pee Lopez Age: 59 yrs Sex: Male : 1960 Arrival Date: 07/11/2020 Time: 18:58 Bed 8 Private MD: Jim Hernandez R ED Physician Narayan Montoya HPI: 07/11 20:27 This 59 yrs old Black Male presents to ER via Ambulatory with complaints of Breathing rn Difficulty, COVID+. 20:27 The patient has shortness of breath with light activity. Onset: The symptoms/episode rn began/occurred 1 week(s) ago. Duration: The symptoms are intermittent. The patient's shortness of breath is aggravated by exertion, light activity. Severity of symptoms: At their worst the symptoms were moderate in the emergency department the symptoms have improved. The patient has not experienced similar symptoms in the past. Reports tested for COVID 8 days ago, +, reports fever and feeling ill has improved but now sob, mild to moderate, O2 was 86% on RA at home, checked with pulse oximeter, has "mild asthma", used to smoke. No chest pain. . 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 - Social history:: Smoking status: Patient denies any tobacco usage or history of. - Family history:: not pertinent. - Hospitalizations: : No recent hospitalization is reported. ROS: 20:27 Constitutional: Negative for fever, chills, and weight loss, Eyes: Negative for injury, rn pain, redness, and discharge, Neck: Negative for injury, pain, and swelling, Cardiovascular: Negative for chest pain, palpitations, and edema, Respiratory: + sob and cough Abdomen/GI: Negative for abdominal pain, nausea, vomiting, diarrhea, and constipation, MS/Extremity: Negative for injury and deformity, Skin: Negative for injury, rash, and discoloration, Neuro: Negative for headache, numbness, tingling, and seizure. Exam: 20:27 Constitutional: This is a well developed, well nourished patient who is awake, alert, rn and in no acute distress. Head/Face: Normocephalic, atraumatic. ENT: no stridor Neck: Trachea midline, no masses palpated, and no cervical lymphadenopathy. Supple, full range of motion without nuchal rigidity, or vertebral point tenderness. No Meningismus. Cardiovascular: Regular rate and rhythm. No pulse deficits. Respiratory: Mild tachypnea, no retractions. Abdomen/GI: soft, non-tender Skin: Warm, dry MS/ Extremity: Pulses equal, no cyanosis. Neuro: Awake and alert, GCS 15 21:22 ECG was reviewed by the Attending Physician. rn Vital Signs: 19:28 BP 145 / 104; Pulse 84; Resp 18; Temp 98.5; Pulse Ox 93% ; Weight 106.59 kg; Height 5 ll1 ft. 11 in. (180.34 cm); 21:00 BP 112 / 76; Pulse 79; Resp 18; Pulse Ox 92% on R/A; wh 22:15 BP 133 / 96; Pulse 78; Resp 18; Pulse Ox 95% on R/A; wh 19:28 Body Mass Index 32.78 (106.59 kg, 180.34 cm) ll1 MDM: 19:53 Patient medically screened. rn 22:00 Differential diagnosis: pneumonia, COVID. Data reviewed: vital signs, nurses notes, label stamper test result(s), EKG, radiologic studies, plain films, and as a result, I will discharge patient. Counseling: I had a detailed discussion with the patient and/or guardian regarding: the historical points, exam findings, and any diagnostic results supporting the discharge/admit diagnosis, lab results, radiology results, the need for outpatient follow up, to return to the emergency department if symptoms worsen or persist or if there are any questions or concerns that arise at home. Response to treatment: the patient's symptoms have mildly improved after treatment, and as a result, I will discharge patient. ED course: Labs unremarkable, O2 93-96% here, feels ok, cxr shows possible mild pneumonia, will dc home with abx and decadron. . 07/11 20:00 Order name: CBC with Diff; Complete Time: 21:21 rn 07/11 20:00 Order name: Basic Metabolic Panel; Complete Time: 21:59 rn 07/11 20:00 Order name: XRAY Chest (1 view); Complete Time: 21:01 rn 07/11 20:00 Order name: Troponin (emerg Dept Use Only); Complete Time: 21:59 rn 07/11 20: Order name: Procalcitonin; Complete Time: 22:07 rn 07/11 20:00 Order name: IV Start; Complete Time: 20:53 rn 07/11 20:00 Order name: EKG; Complete Time: : rn 07/11 20: Order name: EKG - Nurse/Tech; Complete Time: 20:52 rn EC: Rate is 72 beats/min. Rhythm is regular. QRS Aromas is Normal. SD interval is normal. QRS rn interval is normal. QT interval is normal. No Q waves. T waves are Normal. No ST changes noted. Clinical impression: Normal ECG. Interpreted by me. Reviewed by me. Administered Medications: 21:00 Drug: Decadron - Dexamethasone 10 mg Route: IVP; Site: left forearm; [facility] 21:25 Follow up: Response: No adverse reaction 21:39 Drug: LevaQUIN 750 mg Volume: 150 ml; Route: IVPB; Infused Over: 90 mins; Site: left forearm; 23:01 Follow up: Response: No adverse reaction; IV Status: Completed infusion Disposition: 07/11/20 22:01 Discharged to Home. Impression: Pneumonia, unspecified organism, Coronavirus infection, unspecified. - Condition is Stable. - Discharge Instructions: Community-Acquired Pneumonia, Adult, COVID-19. - Prescriptions for dexamethasone 6 mg Oral tablet - take 6 milligram by ORAL route once daily for 10 days; 10 milligram. Levaquin 750 mg Oral Tablet - take 1 tablet by ORAL route once daily for 10 days; 10 tablet. - Medication Reconciliation Form, Thank You Letter, Antibiotic Education, Prescription Opioid Use form. - Follow up: Private Physician; When: As needed; Reason: Recheck today's complaints, Re-evaluation by your physician. - Problem is new. - Symptoms have improved. Signatures: Dispatcher [employer] EDMS Narayan Montoya MD MD rn Bryson, James, RN RN jb4 [facility] Elizabeth Reed RN RN ll1 Corrections: (The following items were deleted from the chart) 23:02 22:01 07/11/2020 22:01 Discharged to Home. Impression: Pneumonia, unspecified organism; wh Coronavirus infection, unspecified. Condition is Stable. Discharge Instructions: COVID-19, Community-Acquired Pneumonia, Adult. Prescriptions for dexamethasone 6 mg Oral tablet - take 6 milligram by ORAL route once daily for 10 days; 10 milligram, Levaquin 750 mg Oral Tablet - take 1 tablet by ORAL route once daily for 10 days; 10 tablet. and Forms are Medication Reconciliation Form, Thank You Letter, Antibiotic Education, Prescription Opioid Use. Follow up: Private Physician; When: As needed; Reason: Recheck today's complaints, Re-evaluation by your physician. Problem is new. Symptoms have improved. rn
[2020-07-11 23:18] VITALS: TEMP 98.5
[2020-07-11 23:21] VITALS: BP 133/96; O2SAT 95
--- NOTE | 2020-07-12 11:28 | EKG ---
Test Date: 2020-07-11 Test Time: 20:33:07 Assistant Professor In Family Studies: BRIGID MEASUREMENT RESULTS: Intervals: Rate: 72 MS: 180 QRSD: 90 QT: 376 QTc: 411 Kiana: P: 55 MS: 180 QRS: 51 T: 63 INTERPRETIVE STATEMENTS: Normal sinus rhythm Normal ECG Compared to ECG 04/28/2019 23:21:21 No significant changes Electronically Signed On 07-12-20 11:27:05 CDT by Matt Larsen
== END 2020-07-11 23:02 | disposition home or self-care (01) ==
LOC: ER 18:56
DX: U07.1 COVID-19 (principal); J18.9 Pneumonia, unspecified organism; I10 Essential (primary) hypertension
CPT/HCPCS: 96365; 93005; 85025; 80048; 36415; 84484; 84145; 71045; 96375; 99284; J1100

== ENCOUNTER 2020-09-06 15:06 | Emergency (ER) | payer OTHER ==
--- OUTSIDE RECORDS SUMMARY | 2020-09-06 15:08 | XMS REPORT | Summary of Care ---
:1960 Author Organization [facility] Address [address] [place] [address]- Encounter HQ Sendyr_matty(FIN) [id number] Date(s): 07/04/20 - 07/04/20 [facility] [address] [place] [address]- [phone] Discharge Disposition: Home or Self Care Attending Physician: Alex Dill MD Referring Physician: Alex Dill MD Vital Signs Most recent to oldest [...] mucous 01/12/08 Active membrane8 Nicotine dependence9 Active [id number] Active Simple obesity(Confirmed) Active Brain TIA(Confirmed) Active Tremor(Confirmed) Active Type 2 diabetes [id number] Active 1Data migrated from [employer] on 02/18/15.2Data migrated from [employer] on [...] CUTS., # 30 patch, 6 Refill(s), Pharmacy: [email or web address] #[id number], 180.34, cm, 07/04/20 11:51:00 CDT, Height, 107.273, [...]
--- OUTSIDE RECORDS SUMMARY | 2020-09-06 15:08 | XMS REPORT | Clinical Summary ---
:1960 Author Organization [facility] Address [address] [place] [address] Care Team Providers Name Role Phone Unavailable [...] Signs Not on file Plan of Treatment Health Maintenance Due Date Last Done Comments COLON CANCER SCREENING COLONOSCOPY 1960 MEDICARE ANNUAL WELLNESS (YEAR 2 or FIRST YEAR if no 09/23/2019 IPPE) INFLUENZA VACCINE (#1) 2020 LIPID PANEL 04/29/2022 04/29/2019 Results Not on fileafter 09/06/2019 Insurance Payer Benefit Plan / Subscriber ID Effective Dates Phone Addre ss Type Group [employer]IE [employer] HMO [id number] 2018-Yobani [place] Contracted ALL t Advance Directives For more information, please contact: [phone] Code Status Date Activated Date Inactivated Comments [...]
--- OUTSIDE RECORDS SUMMARY | 2020-09-06 15:08 | XMS REPORT | Continuity of Care Document ---
:1960 Author Organization [email or web address] [facility] [employer] Care Team Providers Name Role Phone [email or web address] [facility] [employer] Unavailable Un available Problems Problem Status Onset [...] CUTS., # 30 patch, 6 Refill(s), Pharmacy: [facility] #[id number], 180.34, cm, 07/04/20 11:51:00 CDT, Height, 107.273, kg, 07/04/20 11:51:00 CDT, W... 24 HR = 1 patch, Active [facility] rivastigmine TOP, Daily, 020 Neuro 0.396 MG/HR apply to Transdermal area that is Patch [Exelon] clean/dry/palafox irless & free of redness/irri tation/etienne /cuts, # 30 patch, 4 Refill(s), Pharmacy: [facility] #[id number] 24 HR = 1 patch, Active Mischer rivastigmine TOP, Daily, 019 Neuro 0.396 MG/HR apply to Transdermal area that is Patch [Exelon] clean/dry/palafox irless & free of redness/irri tation/etienne /cuts, # 30 patch, 4 Refill(s), Pharmacy: [facility] #[id number] 24 HR = 1 patch, Active Mischer rivastigmine TOP, Daily, 019 Neuro 0.192 MG/HR apply to Transdermal area that is Patch [Exelon] clean/dry/palafox irless & free of redness/irri tation/etienne /cuts, # 30 patch, 4 Refill(s), Pharmacy: [facility] #[id number] Aspirin 81 MG 81 mg = 1 [...] Assertion Drug Active Data migra murray from [employer] on 01/19/15. Originally documented as CARBAMAZEPINE. [facility] ne<sup>1, allergy Data migrated from [employer] on 01/19/15. Originally documented as TEGRETOL. Neuro [...] [facility] Diastolic (mm Hg) 92 [facility] 100 07/04/2020 [facility] Respitory Rate 16 07[facility]04[facility]2020 [facility] Height 180.34 cm 07/04/2020 [facility] Weight 107.273 07/04/2020 [facility] BMI Calculated 32.98 07/04/2020 [facility] Systolic (mm Hg) 127 12/02/2019 [facility] Diastolic (mm Hg) 88 12/02/2019 [facility] Heart Rate 83 12/02/2019 [facility] Respitory Rate 16 12/02/2019 [facility] Height 180.34 cm 12/02/2019 [facility] Weight 106.818 12/02/2019 [facility] Neuro BMI Calculated 32.84 12/02/2019 [facility] Systolic (mm Hg) 143 07/29/2019 [facility] Diastolic (mm Hg) 99 07/29/2019 [facility] Ne uro Heart Rate 91 07/29/2019 [facility] Neuro Respitory Rate 16 07/29/2019 [facility] Height 177.8 cm 07/29/2019 [facility] Neuro Weight 105.455 07/29/2019 [facility] Neuro BMI Calculated 33.36 07/29/2019 [facility] Neuro Systolic (mm Hg) 105 06/17/2019 [facility] Diastolic (mm Hg) 81 06/17/2019 [facility] Ne uro Heart Rate 81 06/17/2019 [facility] Neuro Respitory Rate 16 06/17/2019 [facility] Height 180.34 cm 06/17/2019 [facility] Neuro Weight 103.636 06/17/2019 [facility] Neuro BMI Calculated 31.87 06/17/2019 [facility] Neuro Encounters Location Location Encounter Encounter Reason Attending ADM SD Stat us Source Details Type Number For Provider Date Date Visit [facility] [id number] Alex Dill 06/17 06/18 [facility] Neuro [place] [facility] [id number] Alex Joann 07[facility]29 [facility] [place] [facility] [id number] Jim 07/29 07/30 [facility] [place] /2018 Ne uro [place] [facility] Outpatient [id number] Alex Dill 12[facility]01 [facility] [place] [facility] [id number] lAex Dill 12/01 12/02 [facility] /2019 Neuro [place] Out[facility] [id number] Alex David 03/22 [facility] [place] [facility] [id number] Jim 03/22 03/22 [facility] [place] /2019 N euro [place] [facility] [id number] Jim 03/22 03/22 [facility] [place] [place] /2019 N euro [place] [facility] Outpatient [id number] Alex Dill 03/31 [facility] [place] [facility] [id number] Alex Dill 07/04 [facility] [place] [facility] [id number] Alex Dill 07/04 07/05 [facility] /2019 Neuro [place] Outpatient [id number] Alex Dill 01/02 [facility] Procedures [...]
--- OUTSIDE RECORDS SUMMARY | 2020-09-06 15:09 | XMS REPORT | Continuity of Care Document ---
:[address] [facility] t Address [address] [place] [address] Care Team Providers Name Role Phone Rob Dill Attending Clinician Samina TO Attending Clinician Unavailable Samina TO Admitting Clinician Unavailable Advance Directives Directive Decision Effective Date Termination Date Comments Sour ce Partial Code This Yes 2019-04-29 2019-04-30 [facility] - code status was 00:00:00 00:00:00 Medical [...] Clinician Date Imaging of Problem Active 2020-07-07 [facility] gastrointe 7-03 01:26:11 l stinal Imaging 00:00: Krystian tract of 00 abnormal gastrointe (finding) stinal tract abnormal (finding) Active 03/24/2008 Problem 07/07/2020 Data migrated from [employer] on 02/18/15. [facility] Disease of Problem Active 2020-07-07 [facility] pancreas 6-12 01:26:11 l (disorder) Disease 00:00: Her pierre of 00 pancreas (disorder) Active 03/03/2008 Problem 07/07/2020 Data migrated from [employer] on 02/18/15. [facility] Benign Problem Active 2020-07-07 Memor ia prostatic 4- 01:26:11 l hyperplasi Benign 00:00: Herm wendy a prostatic 00 (disorder) hyperplasi a (disorder) Active 01/12/2008 Problem 07/07/2020 Data migrated from [employer] on 02/18/15. [facility] Inflammato Problem Active 2007-2020-07-07 M emoria ry disease 01-11 01:26:11 l of mucous 00:00: Krystian membrane Inflammato 00 (disorder) ry disease of mucous membrane (disorder) Active 01/12/2008 Problem 07/07/2020 Data migrated from [employer] on 02/18/15. [facility] Amnesia Problem Active 2020-07-07 Moises chio (finding) 01:26:11 l Amnesia Narvon (finding) Active Problem 07/07/2020 [facility] Benign [...] 2020-07-07 M emoria a 01:26:11 l (finding) Narvon Proteinuri a (finding) Active Problem 07/07/2020 Data migrated from [employer] on 02/18/15. [facility] Simple Problem Active 2020-07-07 Memor ia obesity 01:26:11 l (disorder) Simple Herm wendy obesity (disorder) Active Problem 07/07/2020 [facility] Transient Problem Active 2020-07-07 Me moria ischemic 01:26:11 l attack Narvon (disorder) Transient ischemic attack (disorder) Active Problem 07/07/2020 [facility] Diabetes Problem Active 2020-07-07 Mem oria mellitus 01:26:11 l type 2 Diabetes Adalberto n (disorder) mellitus type 2 (disorder) Active Problem 07/07/2020 [facility] 02/18/15. [facility] Tremor Problem Active [...] Date Stop Date Source Natural father Stroke [facility] Social History Social Habit Start Date Stop Date Quantity Comments Source Sex Assigned At [facility] Smoking Status Start Date Stop Date Source Social History 2020-07-04 16:54:14 2020-07-04 16:54:14 [facility] Medications Ordered Filled Start Stop Current Ordering [...] CUTS., # 30 patch, 6 Refill(s), Pharmacy: [facility] #[id number], 180.34, cm, 07/04/20 11:51:00 CDT, Height, 107.273, kg, 07/04/20 11:51:00 CDT, W... 24 HR Yes = 1 patch, Memori a rivastigmin 3-12 TOP, l e 0.396 20:03: Daily, Krystian MG/HR 00 apply to Transdermal area that Patch is [Exelon] clean/dry/ hairless & free of redness/ir ritation/b urns/cuts, # 30 patch, 4 Refill(s), Pharmacy: [facility] #[id number] 24 HR 2019- Yes = 1 patch, Memori a rivastigmin 1-07 TOP, l e 0.396 21:09: Daily, Krystian MG/HR 00 apply to Transdermal area that Patch is [Exelon] clean/dry/ hairless & free of redness/ir ritation/b urns/cuts, # 30 patch, 4 Refill(s), Pharmacy: [facility] #[id number] 24 HR 2018- Yes = 1 patch, Memori a rivastigmin 9-26 TOP, l e 0.192 16:50: Daily, Krystian MG/HR 00 apply to Transdermal area that Patch is [Exelon] clean/dry/ hairless & free of redness/ir ritation/b urns/cuts, # 30 patch, 4 Refill(s), Pharmacy: [facility] #[id number] Aspirin 81 2018-0 Yes 81 mg = 1 Me moria MG Enteric 9-26 tab, PO, l Coated 16:15: Daily, # Narvon Tablet 00 90 tab, 3 Refill(s) atorvastati Yes 40 mg = 4 M emoria n 10 mg 9-26 tab, PO, l oral tablet 16:15: Daily, 0 He rmann 00 Refill(s) bisacodyl 5 2018- Yes 10 mg = 2 M emoria mg oral 9-26 tab, PO, l enteric 16:15: Daily, PRN Herm wendy coated 00 Constipati tablet on, # 20 tab, 0 Refill(s) diazepam 5 2018- Yes 5 mg = 1 Mem oria mg oral 9-26 tab, PO, l tablet 16:15: Bedtime, 0 Ana nn 00 Refill(s) FLUoxetine Yes 20 mg = 1 Me moria 20 mg oral 06-17 tab, PO, l tablet 16:15: Daily, # Narvon 00 30 tab, 0 Refill(s) glimepiride Yes 2 mg = 1 Me moria 2 mg oral - tab, PO, l tablet 16:15: QID, 0 Narvon 00 Refill(s) Insulin Yes SUB-Q, Memoria Glargine - Daily, 0 l 100 UNT/ML 16:15: Refill(s) He rmann Injectable 00 Solution metoprolol Yes 100mg QD Take [address] [facility] [address] (LOPRESSOR) 8-09 [facility] - 100 MG 11:57: mouth Medical tablet 57 daily. Noble glimepiride Yes 2mg Q.25D Take [address] [facility] (AMARYL) 2 809 by mouth 4 [facility] - MG tablet 11:57: (four) Medica l 57 times Center daily. lisinopril Yes 20mg QD Take [address] (PRINIVIL,Z 04-30 by mouth [facility] - ESTRIL) 20 11:57: daily. Medic al MG tablet 57 [facility] FLUoxetine Yes 20mg QD Take [address] (PROZAC) 20 809 by mouth [facility] - MG tablet 11:57: daily. Medica l 57 [facility] diazePAM Yes 5mg Take [address] [facility] (VALIUM) 5 8-09 by mouth [facility] - MG tablet 11:57: every Medical 57 night as Center needed for Anxiety. primidone Yes 50mg QD Take [address] [facility] [address] [facility] (MYSOLINE) 809 by mouth [facility] - 50 MG 11:57: daily. Medical tablet 57 [facility] insulin Yes 8U QD Inject [facility] [...] Systolic (mm Hg) 2020-07-04 16:51:00 Moises rial Narvon Diastolic (mm Hg) 2020-07-04 16:51:00 Mem orial Narvon Heart Rate 2020-07-04 16:51:00 Memorial Krystian Respitory Rate 2020-07-04 16:51:00 Memori al Narvon Height 2020-07-04 16:51:00 180.34 cm Memorial Krystian Weight 2020-07-04 16:51:00 [facility] Krystian BMI Calculated 2020-07-04 16:51:00 Memori al Narvon Systolic (mm Hg) 2019-12-02 19:31:00 Moises rial Narvon Diastolic (mm Hg) 2019-12-02 19:31:00 Mem orial Narvon Heart Rate 2019-12-02 19:31:00 [facility] Narvon Respitory Rate 2019-12-02 19:31:00 Memori al Narvon Height 2019-12-02 19:31:00 180.34 cm [facility] Narvon Weight 2019-12-02 19:31:00 [facility] Krystian BMI Calculated 2019-12-02 19:31:00 Memori al Narvon Systolic (mm Hg) 2019-07-29 20:56:00 Moises rial Krystian Diastolic (mm Hg) 2019-07-29 20:56:00 Mem orial Narvon Heart Rate 2019-07-29 20:56:00 Memorial Krystian Respitory Rate 2019-07-29 20:56:00 Memori al Narvon Height 2019-07-29 20:56:00 177.8 cm [facility] Narvon Weight 2019-07-29 20:56:00 [facility] Narvon BMI Calculated 2019-07-29 20:56:00 Memori al Narvon Systolic (mm Hg) 2019-06-17 15:55:00 Moises rial Narvon Diastolic (mm Hg) 2019-06-17 15:55:00 Mem orial Narvon Heart Rate 2019-06-17 15:55:00 Memorial Krystian Respitory Rate 2019-06-17 15:55:00 Memori al Narvon Height 2019-06-17 15:55:00 180.34 cm Carson Humphreyann Weight 2019-06-17 15:55:00 [facility] Krystian BMI Calculated 2019-06-17 15:55:00 Yimi Russell Procedures This patient has no known procedures. Plan of Care Planned Activity Planned Date Details Comments Source Future Scheduled 2022-04-[address] [facility] Test 00:00:00 (procedure) [code = [facility] [id number]] Future Scheduled 2020-05-[address] [facility] - Test 00:00:00 (#1) [code = Medical Center INFLUENZA VACCINE (#1)] Future Scheduled 2019-09-[address] [facility] - Test 00:00:00 WELLNESS (YEAR 2 or Medical Center FIRST YEAR if no IPPE) [code = MEDICARE ANNUAL WELLNESS (YEAR 2 or FIRST YEAR if no IPPE)] Future Scheduled [address] [facility] - Test 00:00:00 malignant neoplasm Medical C enter of colon (procedure) [code = 822864083] Encounters Start End Encounter Admission Attending Care Care Encounter Source Date/Time Date/Time Type Type Clinicians Facility Department ID 2020-07-04 2020-07-04 Outpatient TIMUR DillSCHER [id number] 11:45:00 23:59:59 Alex 12 Rob 2020-03-22 2020-03-22 Outpatient TIMUR DillSCHER [id number] 14:15:00 14:15:00 Alex 10 Rob 2020-03-22 2020-03-22 Outpatient TIMUR DillSCHER [id number] 14:15:00 14:15:00 Alex 11 Rob 2019-12-02 2019-12-02 Outpatient TIMUR DillSCHER [id number] 14:45:00 23:59:59 Alex 09 Rob 2019-07-29 2019-07-29 Outpatient TIMUR DillSCHER [id number] 14:45:00 23:59:59 Alex 08 Rob 2019-06-17 2019-06-17 Outpatient TIMUR DillSCHER [id number] 11:00:00 23:59:59 Alex 07 Rob Results Test Description Test Time Test Comments Results Result Comments Source POCT-GLUCOSE METER 2019-04-30 09:12:00 Test Item Value Reference Range Interpretation Comme nts POC-GLUCOSE METER (BEAKER) (test 194 mg/dL 70-[address] [facility] [address] code = 1538) [facility] 7703 0 POCT-GLUCOSE [id number] 21:24:00 Test Item Value Reference Range Interpretation Comments POC-GLUCOSE METER 145 mg/dL 70-[address] [facility] [address] (NORAH) (test code = GIAN R [facility] 1538) [address] MR, BRAIN, WITHOUT [id number] 19:11:00FINAL REPORT MR, BRAIN, WITHOUT CONTRAST, MR, [...] arteries: Normal flow-related enhancement within the bilateral [employer] P1-P2 segments without flow-limiting stenosisAdditional findings: None. [...] MDReport Verified Date/Time: 04/29/2019 19:11:42 Reading Location: [facility] C013V Neuro Reading Room MR, MRA, BRAIN, WITHOUT [id number] 19:11:00FINAL REPORT MR, BRAIN, WITHOUT CONTRAST, MR, [...] arteries: Normal flow-related enhancement within the bilateral [employer] P1-P2 segments without flow-limiting stenosisAdditional findings: None. [...] MDReport Verified Date/Time: 04/29/2019 19:11:42 Reading Location: [address] Neuro Reading Room MR, MRA, NECK, WITHOUT IV [id number] 19:11:00FINAL REPORT MR, BRAIN, WITHOUT CONTRAST, MR, [...] arteries: Normal flow-related enhancement within the bilateral [employer] P1-P2 segments without flow-limiting stenosisAdditional findings: None. [...] cervical or cranial circulation. Signed: Dori Camacho MDRchun Verified Date/Time: 04/29/2019 19:11:42 Reading Location: [facility] C013V Neuro Reading Room POCT-GLUCOSE [id number] 17:21:00 Test Item Value Reference Range Interpretation Comments POC-GLUCOSE METER 82 mg/dL 70-[address] [facility] [address] [facility] (test code = [place] [address] 1538) POCT-GLUCOSE [id number] 11:55:00 Test Item Value Reference Range Interpretation Comments POC-GLUCOSE METER 130 mg/dL 70-[address] [facility] [address] ([facility] (test code = [place] 1538) [address] [id number] 11:06:00 Test Item Value Reference Range Interpretation Comments RPR SCREEN ([facility] (test code = Nonreactive Nonreactive 420) T4, [id number] 09:15:00 Test Item Value Reference Range Interpretation Comments FREE T4 ([facility] (test code = 655) 1.19 ng/dL 0.70-1.48 HEMOGLOBIN [id number] 09:02:00 Test Item Value Reference Range Interpretation Comments HEMOGLOBIN A1C (BEAKER) (test code = 9.7 % 4.3-6.1 H 368) C-REACTIVE [id number] 07:45:00 Test Item Value Reference Range Interpretation Comments C-REACTIVE PROTEIN (BEAKER) (test 0.21 mg/dL 0.00-0.50 code = 676) FastingLIPID [id number] 07:30:00 Test Item Value Reference Range Interpretation Comments TRIGLYCERIDES (BEAKER) (test code = 108 mg/dL 540) CHOLESTEROL (BEAKER) (test code = 174 mg/dL 631) HDL CHOLESTEROL (BEAKER) (test code 43 mg/dL = 976) LDL CHOLESTEROL CALCULATED (AKER) 109 mg/dL (test code = 633) Triglyceride Reference Range: Low Risk <150 Borderline 150-199 High Risk 200-499 Very High Risk >=500Cholesterol Reference Range: Low Risk <200 Borderline 200-239 High Risk >240HDL Cholesterol Reference Range: Low Risk >=60 High Risk <40LDL Cholesterol Reference Range: Optimal <100 Near Optimal 100-129 Borderline 130-159 High 160-189 Very High >=190 FastingBASIC METABOLIC [id number] 07:30:00 Test Item Value Reference Range Interpretation [...] APPLICABLE FOR DIALYSIS PATIEN TS. FastingHEPATIC FUNCTION [id number] 07:30:00 Test Item Value Reference Range Interpretation [...] (test code = 42 U/L 6-55 347) [id number] 07:22:00 Test Item Value Reference Range Interpretation Comments HOMOCYSTEINE (BEAKER) (test code = 8.2 umol/L 5.1-15.4 642) TSH/FREE T4 IF [id number] 07:21:00 Test Item Value Reference Range Interpretation Comments THYROID STIMULATING HORMONE 0.00 uIU/mL 0.35-4.94 L (BEAKER) (test code = 772) VITAMIN B12 AND [id number] 07:03:00 Test Item Value Reference Range Interpretation Comments VITAMIN B12 (BEAKER) (test code = 295 pg/mL 213-816 774) FOLATE (BEAKER) (test code = 362) 16.3 ng/mL >=7.0 TROPONIN [id number] 06:25:00 Test Item Value Reference Range Interpretation [...] acidosis, acute neurological disease, and persistent tachyarrhythmia.FastingPROTHROMBIN TIME/[id number] 05:45:00 Test Item Value Reference Range Interpretation [...] mechanical heart valves.CBC W/PLT COUNT & AUTO [id number] 05:42:00 Test Item Value Reference Range Interpretation [...] % 0-1 PERCENT (BEAKER) (test code = 2801)
[2020-09-06] MEDS ORDERED: TRAMADOL HCL 50 MG TAB ONE (16:52)
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
--- NOTE | 2020-09-06 17:22 | RAD REPORT ---
EXAM DESCRIPTION: Chencho Angelo Left09/06/2020 4:59 pm CLINICAL HISTORY: Left leg pain status post injury FINDINGS: No fracture is seen . Soft tissue swelling
[2020-09-08 04:56] VITALS: BP 154/104; TEMP 98.3; O2SAT 97
== END 2020-09-06 18:01 | disposition home or self-care (01) ==
LOC: ER 15:06
DX: S80.11XA Contusion of right lower leg, initial encounter (principal); V49.49XA Driver injured in collision with other motor vehicles in traffic accident, initial encounter; Y93.89 Activity, other specified; Y92.9 Unspecified place or not applicable; I10 Essential (primary) hypertension; G30.9 Alzheimer's disease, unspecified; F02.80 Dementia in other diseases classified elsewhere, unspecified severity, without behavioral disturbance, psychotic disturbance, mood disturbance, and anxiety
CPT/HCPCS: 99284

== ENCOUNTER 2020-09-21 09:40 | Emergency (ER) | payer OTHER ==
--- OUTSIDE RECORDS SUMMARY | 2020-09-21 09:46 | XMS REPORT | Clinical Summary ---
:1960 Author Organization [facility] Address [address] [place] [address] Care Team Providers Name Role Phone Unavailable [...] PANEL 04/29/2022 04/29/2019 Results Not on fileafter 09/21/2019 Insurance Payer Benefit Plan / Subscriber ID Effective Dates Phone Addre ss Type Group LAURIE S[employer]IVAN HMO [id number] 2018-[place]ob[place] Contracted ALL t Advance Directives For more information, please contact: [phone] Code Status Date Activated Date Inactivated Comments [...]
--- OUTSIDE RECORDS SUMMARY | 2020-09-21 09:46 | XMS REPORT | Continuity of Care Document ---
:[address] [facility] t Address [address] [place] [address] Care Team Providers Name Role Phone Rob Dill Attending Clinician Samina TO Attending Clinician Unavailable Samina TO Admitting Clinician Unavailable Advance Directives Directive Decision Effective Date Termination Date Comments Sour ce Partial Code This Yes 2019-04-29 2019-04-30 [facility] - code status was 00:00:00 00:00:00 Medical [...] Clinician Date Imaging of Problem Active 2020-07-07 [facility] gastrointe 7-03 01:26:11 l stinal Imaging 00:00: Krystian tract of 00 abnormal gastrointe (finding) stinal tract abnormal (finding) Active 03/24/2008 Problem 07/07/2020 Data migrated from mCASH on 02/18/15. [facility] Disease of Problem Active 2020-07-07 [facility] pancreas 6-12 01:26:11 l (disorder) Disease 00:00: Her pierre of 00 pancreas (disorder) Active 03/03/2008 Problem 07/07/2020 Data migrated from mCASH on 02/18/15. [facility] Benign Problem Active [...] 2020-07-07 Moises chio (finding) 01:26:11 l Amnesia Boyd (finding) Active Problem 07/07/2020 [facility] Benign [...] 2020-07-07 M emoria a 01:26:11 l (finding) Boyd Proteinuri a (finding) Active Problem 07/07/2020 Data migrated from GE Centricity on 02/18/15. [facility] Simple Problem Active 2020-07-07 Memor ia obesity 01:26:11 l (disorder) Simple Herm wendy obesity (disorder) Active Problem 07/07/2020 [facility] Transient Problem Active 2020-07-07 Me moria ischemic 01:26:11 l attack Boyd (disorder) Transient ischemic attack (disorder) Active Problem 07/07/2020 [facility] Diabetes Problem Active 2020-07-07 Mem oria mellitus 01:26:11 l type 2 Diabetes Adalberto n (disorder) mellitus type 2 (disorder) Active Problem 07/07/2020 [facility] on 02/18/15. [facility] Tremor Problem [...] Date Stop Date Source Natural father Stroke [facility] Social History Social Habit Start Date Stop Date Quantity Comments Source Sex Assigned At [facility] Smoking Status Start Date Stop Date Source Social History 2020-07-04 16:54:14 2020-07-04 16:54:14 [facility] Medications Ordered Filled Start Stop Current [...] CUTS., # 30 patch, 6 Refill(s), Pharmacy: [facility] #[id number], 180.34, cm, 07/04/20 11:51:00 CDT, Height, 107.273, kg, 07/04/20 11:51:00 CDT, W... 24 HR Yes = 1 patch, Memori a rivastigmin 3-12 TOP, l e 0.396 20:03: Daily, Krystian MG/HR 00 apply to Transdermal area that Patch is [Exelon] clean/dry/ hairless & free of redness/ir ritation/b urns/cuts, # 30 patch, 4 Refill(s), Pharmacy: [facility] #[id number] 24 HR 2019- Yes = 1 patch, Memori a rivastigmin 1-07 TOP, l e 0.396 21:09: Daily, Krystian MG/HR 00 apply to Transdermal area that Patch is [Exelon] clean/dry/ hairless & free of redness/ir ritation/b urns/cuts, # 30 patch, 4 Refill(s), Pharmacy: [facility] #[id number] 24 HR 2018- Yes = 1 patch, Memori a rivastigmin 9-26 TOP, l e 0.192 16:50: Daily, Krystian MG/HR 00 apply to Transdermal area that Patch is [Exelon] clean/dry/ hairless & free of redness/ir ritation/b urns/cuts, # 30 patch, 4 Refill(s), Pharmacy: [facility] #[id number] Aspirin 81 2018-0 Yes 81 mg = 1 Me moria MG Enteric 9-26 tab, PO, l Coated 16:15: Daily, # Boyd Tablet 00 90 tab, 3 Refill(s) atorvastati [...] tab, PO, l tablet 16:15: Daily, # Boyd 00 30 tab, 0 Refill(s) glimepiride Yes 2 mg = 1 Me moria 2 mg oral - tab, PO, l tablet 16:15: QID, 0 Boyd 00 Refill(s) Insulin Yes SUB-Q, Memoria Glargine - Daily, 0 l 100 UNT/ML 16:15: Refill(s) He rmann Injectable 00 Solution metoprolol Yes 100mg QD Take [address] (LOPRESSOR) 8-09 mg by [facility] - 100 MG 11:57: mouth Medical tablet 57 daily. Lewis glimepiride Yes 2mg Q.25D Take [address] [facility] (AMARYL) 2 809 by mouth 4 Cammy es - MG tablet 11:57: (four) Medica l 57 times Center daily. lisinopril Yes 20mg QD Take [address] (PRINIVIL,Z 04-30 by mouth Luke s - ESTRIL) 20 11:57: daily. Medic al MG tablet 57 Lewis FLUoxetine Yes 20mg QD Take [address] (PROZAC) 20 809 by mouth Luke [facility] - MG tablet 11:57: daily. Medica l 57 Lewis diazePAM Yes 5mg Take [address] [facility] (VALIUM) 5 8-09 by mouth [facility] - MG tablet 11:57: every Medical 57 night as Center needed for Anxiety. primidone Yes 50mg QD Take [address] (MYSOLINE) 809 by mouth [facility] - 50 MG 11:57: daily. Medical tablet 57 Lewis insulin Yes 8U QD Inject [facility] [...] Systolic (mm Hg) 2020-07-04 16:51:00 Moises rial Boyd Diastolic (mm Hg) 2020-07-04 16:51:00 Mem orial Boyd Heart Rate 2020-07-04 16:51:00 Memorial Krystian Respitory Rate 2020-07-04 16:51:00 Memori al Boyd Height 2020-07-04 16:51:00 180.34 cm Memorial Krystian Weight 2020-07-04 16:51:00 [facility] Krystian BMI Calculated 2020-07-04 16:51:00 Memori al Boyd Systolic (mm Hg) 2019-12-02 19:31:00 Moises rial Boyd Diastolic (mm Hg) 2019-12-02 19:31:00 Mem orial Boyd Heart Rate 2019-12-02 19:31:00 [facility] Boyd Respitory Rate 2019-12-02 19:31:00 Memori al Boyd Height 2019-12-02 19:31:00 180.34 cm [facility] Boyd Weight 2019-12-02 19:31:00 [facility] Krystian BMI Calculated 2019-12-02 19:31:00 Memori al Boyd Systolic (mm Hg) 2019-07-29 20:56:00 Moises rial Krystian Diastolic (mm Hg) 2019-07-29 20:56:00 Mem orial Boyd Heart Rate 2019-07-29 20:56:00 Memorial Rkystian Respitory Rate 2019-07-29 20:56:00 Memori al Boyd Height 2019-07-29 20:56:00 177.8 cm [facility] Boyd Weight 2019-07-29 20:56:00 [facility] Boyd BMI Calculated 2019-07-29 20:56:00 Memori al Boyd Systolic (mm Hg) 2019-06-17 15:55:00 Moises rial Boyd Diastolic (mm Hg) 2019-06-17 15:55:00 Mem orial Boyd Heart Rate 2019-06-17 15:55:00 [facility] Krystian Respitory Rate 2019-06-17 15:55:00 Memori al Boyd Height 2019-06-17 15:55:00 180.34 cm Carson Humphreyann Weight 2019-06-17 15:55:00 [facility] Krystian BMI Calculated 2019-06-17 15:55:00 Yimi Russell Procedures This patient has no known procedures. Plan of Care Planned Activity Planned Date Details Comments Source Future Scheduled 2022-04-[address] [facility] - Test 00:00:00 (procedure) [code = [facility] 29275381] Future Scheduled 2020-05-[address] [...] C enter of colon (procedure) [code = 535096731] Encounters Start End Encounter Admission Attending Care Care Encounter Source Date/Time Date/Time Type Type Clinicians Facility Department ID 2020-07-04 2020-07-04 Outpatient TIMUR DillSCHER [id number] 11:45:00 23:59:59 Alex 12 Rob 2020-03-22 2020-03-22 Outpatient TIMUR DillSCHER [id number] 14:15:00 14:15:00 Alex 10 Rob 2020-03-22 2020-03-22 Outpatient TIMUR DillSCHER [id number] 14:15:00 14:15:00 Alex 11 Rob 2019-12-02 2019-12-02 Outpatient TIMUR DillSCHER [id number] 14:45:00 23:59:59 Alex 09 Rob 2019-07-29 2019-07-29 Outpatient TIMUR DillSCHER [id number] 14:45:00 23:59:59 Alex 08 Rob 2019-06-17 2019-06-17 Outpatient TIMUR DillSCHER [id number] 11:00:00 23:59:59 Alex 07 Rob Results Test Description Test Time Test Comments Results Result Comments Source POCT-GLUCOSE METER 2019-04-30 09:12:00 Test Item Value Reference Range Interpretation Comme nts POC-GLUCOSE METER (BEAKER) (test 194 mg/dL 70-[address] [facility] [address] code = 1538) [facility] 7703 0 POCT-GLUCOSE [id number] 21:24:00 Test Item Value Reference Range Interpretation Comments POC-GLUCOSE METER 145 mg/dL 70-[address] [facility] [address] (NORAH) (test code = GIAN R [facility] 1538) [address] MR, BRAIN, WITHOUT [id number] 19:11:00FINAL REPORT MR, BRAIN, WITHOUT CONTRAST, MR, [...] arteries: Normal flow-related enhancement within the bilateral STAFF PHYSICIAN P1-P2 segments without flow-limiting stenosisAdditional findings: None. [...] MDReport Verified Date/Time: 04/29/2019 19:11:42 Reading Location: [facility] C013V Neuro Reading Room MR, MRA, BRAIN, WITHOUT [id number] 19:11:00FINAL REPORT MR, BRAIN, WITHOUT CONTRAST, MR, [...] arteries: Normal flow-related enhancement within the bilateral STAFF PHYSICIAN P1-P2 segments without flow-limiting stenosisAdditional findings: None. [...] MDReport Verified Date/Time: 04/29/2019 19:11:42 Reading Location: [address] Neuro Reading Room MR, MRA, NECK, WITHOUT IV [id number] 19:11:00FINAL REPORT MR, BRAIN, WITHOUT CONTRAST, MR, [...] arteries: Normal flow-related enhancement within the bilateral STAFF PHYSICIAN P1-P2 segments without flow-limiting stenosisAdditional findings: None. [...] MDRchun Verified Date/Time: 04/29/2019 19:11:42 Reading Location: [facility] C013V Neuro Reading Room POCT-GLUCOSE [id number] 17:21:00 Test Item Value Reference Range Interpretation Comments POC-GLUCOSE METER 82 mg/dL 70-[address] [facility] [address] [facility] (test code = [place] [address] 1538) POCT-GLUCOSE [id number] 11:55:00 Test Item Value Reference Range Interpretation Comments POC-GLUCOSE METER 130 mg/dL 70-[address] [facility] [address] ([facility] (test code = [address] [place] 1538) [address] [id number] 11:06:00 Test Item Value Reference Range Interpretation Comments R[facility] SCREEN [facility] (test code = Nonreactive Nonreactive 420) T4, [id number] 09:15:00 Test Item Value Reference Range Interpretation Comments FREE T4 ([facility] (test code = 655) 1.19 ng/dL 0.70-1.48 HEMOGLOBIN [id number] 09:02:00 Test Item Value Reference Range Interpretation Comments HEMOGLOBIN A1C (BEAKER) (test code = 9.7 % 4.3-6.1 H 368) C-REACTIVE [id number] 07:45:00 Test Item Value Reference Range Interpretation Comments C-REACTIVE PROTEIN (BEAKER) (test 0.21 mg/dL 0.00-0.50 code = 676) FastingLIPID [id number] 07:30:00 Test Item Value Reference Range Interpretation [...] High 160-189 Very High >=190 FastingBASIC METABOLIC [id number] 07:30:00 Test Item Value Reference Range Interpretation [...] APPLICABLE FOR DIALYSIS PATIEN TS. FastingHEPATIC FUNCTION [id number] 07:30:00 Test Item Value Reference Range Interpretation [...] (test code = 42 U/L 6-55 347) [id number] 07:22:00 Test Item Value Reference Range Interpretation Comments HOMOCYSTEINE (BEAKER) (test code = 8.2 umol/L 5.1-15.4 642) TSH/FREE T4 IF [id number] 07:21:00 Test Item Value Reference Range Interpretation Comments THYROID STIMULATING HORMONE 0.00 uIU/mL 0.35-4.94 L (BEAKER) (test code = 772) VITAMIN B12 AND [id number] 07:03:00 Test Item Value Reference Range Interpretation Comments VITAMIN B12 (BEAKER) (test code = 295 pg/mL 213-816 774) FOLATE (BEAKER) (test code = 362) 16.3 ng/mL >=7.0 TROPONIN [id number] 06:25:00 Test Item Value Reference Range Interpretation [...] acidosis, acute neurological disease, and persistent tachyarrhythmia.FastingPROTHROMBIN TIME/[id number] 05:45:00 Test Item Value Reference Range Interpretation [...] mechanical heart valves.CBC W/PLT COUNT & AUTO [id number] 05:42:00 Test Item Value Reference Range Interpretation [...]
--- OUTSIDE RECORDS SUMMARY | 2020-09-21 09:46 | XMS REPORT | Continuity of Care Document ---
:1960 Author Organization [employer] Care Team Providers Name Role Phone [employer] Unavailable Un available Problems Problem Status Onset [...] CUTS., # 30 patch, 6 Refill(s), Pharmacy: [facility] #[id number], 180.34, cm, 07/04/20 11:51:00 CDT, Height, 107.273, kg, 07/04/20 11:51:00 CDT, W... 24 HR = 1 patch, Active Mischer rivastigmine TOP, Daily, 020 Neuro 0.396 MG/HR apply to Transdermal area that is Patch [Exelon] clean/dry/palafox irless & free of redness/irri tation/etienne /cuts, # 30 patch, 4 Refill(s), Pharmacy: [facility] #[id number] 24 HR = 1 patch, Active Mischer rivastigmine TOP, Daily, 019 Neuro 0.396 MG/HR apply to Transdermal area that is Patch [Exelon] clean/dry/palafox irless & free of redness/irri tation/etienne /cuts, # 30 patch, 4 Refill(s), Pharmacy: [facility] #[id number] 24 HR = 1 patch, Active Mischer rivastigmine TOP, Daily, 019 Neuro 0.192 MG/HR apply to Transdermal area that is Patch [Exelon] clean/dry/palafox irless & free of redness/irri tation/etienne /cuts, # 30 patch, 4 Refill(s), Pharmacy: [facility] #[id number] Aspirin 81 MG 81 mg = 1 [...] Assertion Drug Active Data migra murray from [employer] on 01/19/15. Originally documented as CARBAMAZEPINE. Mischer ne<sup>1, allergy Data migrated from [employer] [facility] on 01/19/15. Originally documented as TEGRETOL. Neuro [...] Starr ro Di[facility] (mm Hg) [facility] 100 07/04/2020 [facility] Respitory Rate 16 [facility]04[facility]2020 [facility] Height 180.34 cm [facility]/04[facility]2020 [facility] Weight 107.273 07/04/2020 [facility] BMI Calculated 32.98 07/04/2020 [facility] Systolic (mm Hg) 127 12/02/2019 [facility] Starr ro Diastolic (mm Hg) 88 12/02/2019 [facility] Ne uro Heart Rate 83 12/02/2019 [facility] Respitory Rate 16 12/02/2019 [facility] Height 180.34 cm 12/02/2019 [facility] Weight 106.818 12/02/2019 [facility] BMI Calculated 32.84 12/02/2019 [facility] Systolic (mm Hg) 143 [facility]/29[facility] Diastolic (mm Hg) 99 07/29/2019 [facility] uro Heart Rate 91 07/29/2019 [facility] Respitory Rate 16 07/29/2019 [facility] Height 177.8 cm 07/29/2019 [facility] Weight 105.455 07/29/2019 [facility] BMI Calculated 33.36 07/29/2019 [facility] Systolic (mm Hg) 105 06/17/2019 [facility] Starr ro Diastolic (mm Hg) 81 06/17/2019 [facility] Ne uro Heart Rate 81 06/17/2019 [facility] Respitory Rate 16 06/17/2019 [facility] Height 180.34 cm 06/17/2019 [facility] Weight 103.636 06/17/2019 [facility] BMI Calculated 31.87 06/17/2019 [facility] Encounters Location Location Encounter Encounter Reason Attending ADM SD Stat us Source Details Type Number For Provider Date Date Visit [facility] Outpatient [id number] Alex Dill 06/17 06/18 [facility] [place] [facility] [id number] Alex Joann 07/29 [facility] [place] [facility] [id number] Jim 07/29 07/30 [facility] [place] /2018 Ne [facility] Out[facility] [id number] Alex Dill 12/01 [facility] [place] [facility] Outpatient [id number] Alex Dill 12/01 12/02 [facility] /2019 [facility] [place] [facility] [id number] Alex Dvaid 03/22 [facility] [place] [facility] [id number] Jim 03/22 03/22 [facility] [place]Reg [place] /2019 N euro [facility] [id number] Jim 03/22 03/22 [facility] Pre[place]Reg [place] /2019 N euro [facility] Outpatient [id number] Alex Dill 03/31 [facility] [place] [facility] [id number] Alex Dill 07/04 [facility] [id number] Alex Dill 07/04 07/05 [facility] /2019 [facility] [id number] Alex Dill 01/02 Ac tive Krystian Procedures [...]
[2020-09-21 10:49] LABS: Protime INR 0.95
[2020-09-21 10:50] LABS: Basophils % 1.5 % (0-1.3); Hematocrit 43.4 % (39.6-49.0); Lymphocytes % 41.8 % (15.3-44.8); MPV 7.9 fL (7.6-11.3); RBC Red Blood Cell Count 4.83 M/uL (4.33-5.43)
--- NOTE | 2020-09-21 10:56 | RAD REPORT ---
EXAM DESCRIPTION: RAD - Ankle Left 3 View - 09/21/2020 10:47 am CLINICAL HISTORY: Pain;Swelling COMPARISON: No comparisons FINDINGS: Moderate soft tissue swelling is seen about the ankle. No fracture, dislocation or aggress pippa marrow lesion.
[2020-09-21 11:01] LABS: BUN Blood Urea Nitrogen 11 mg/dL (7-18); Bicarbonate 25 mmol/L (21-32); Glucose Level 181 mg/dL (74-106); Potassium 4.1 mmol/L (3.5-5.1); Sodium Level 138 mmol/L (136-145)
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
--- NOTE | 2020-09-21 13:52 | RAD REPORT ---
EXAM DESCRIPTION: US - Extremity Venous Uni Ltd - 09/21/2020 1:00 pm CLINICAL HISTORY: PAINswelling left leg COMPARISON: None. TECHNIQUE: Real-time sonographic evaluation of the left lower extremity deep venous system was perfo rmed. FINDINGS: Normal compressibility, flow augmentation, phasic flow and spontaneous flow are identified in the left lower extremity common femoral, superficial femoral, popliteal and posterior tibial vein s. No intraluminal filling defects seen. IMPRESSION: No DVT in the left lower extremity.
[2020-09-21] MEDS ORDERED: SMZ./TMP. 800/160 MG TABLET ONE (14:15)
[2020-09-21 14:23] VITALS: TEMP 97.9
[2020-09-21 14:26] VITALS: BP 136/104; O2SAT 96
== END 2020-09-21 14:10 | disposition home or self-care (01) ==
LOC: ER 09:40
DX: S80.12XA Contusion of left lower leg, initial encounter (principal); W22.8XXA Striking against or struck by other objects, initial encounter; Y93.89 Activity, other specified; Y92.481 Parking lot as the place of occurrence of the external cause; Z86.73 Personal history of transient ischemic attack (TIA), and cerebral infarction without residual deficits; I10 Essential (primary) hypertension; G30.9 Alzheimer's disease, unspecified; F02.80 Dementia in other diseases classified elsewhere, unspecified severity, without behavioral disturbance, psychotic disturbance, mood disturbance, and anxiety
CPT/HCPCS: 36415; 80048; 85025; 85610; 93971; 99284

== ENCOUNTER 2021-01-26 15:47 | Emergency (ER) | payer OTHER ==
--- OUTSIDE RECORDS SUMMARY | 2021-01-26 15:51 | XMS REPORT | Continuity of Care Document ---
:1960 Author Organization [facility] t Address [address] [place] [address] Care Team Providers Name Role Phone Rob Dill Attending Clinician Samina TO Attending Clinician Unavailable Samina TO Admitting Clinician Unavailable Advance Directives Directive Decision Effective Date Termination Date Comments Sour ce Partial Code This Yes 2019-04-29 2019-04-[address] [facility] - code status was 00:00:00 00:00:00 Medical C enter determined by: Patient Drug Protocol After Arrest Occurs? No Mechanical Ventilation with Intubation? No Bag/Mask? Yes Internal/External Pacemaker? Yes Transfer to Critical Care? Yes Chest Compressions? No Defibrillation/Card ioversion? No Problems Condition Condition Condition Status Onset Resolution Last Treating Co mments Source Name Details Category Date Date Treatment Clinician Date TIA TIA Disease Active [facility]ient (transient 808 Cassandra kes - ischemic ischemic 00:00: Medica l attack) attack) 00 Center Imaging of Problem Active 2021-01-05 [facility] gastrointe 7- 01:58:28 l stinal Imaging 00:00: Krystian tract of 00 abnormal gastrointe (finding) stinal tract abnormal (finding) Active 03/24/2008 Problem 01/05/2021 Data migrated from Compliance Control on 02/18/15. [facility] Disease of Problem Active 2021-01-05 [facility] pancreas 6-12 01:58:28 l (disorder) Disease 00:00: Her pierre of 00 pancreas (disorder) Active 03/03/2008 Problem 01/05/2021 Data migrated from [employer] Cent[employer] on 02/18/15[facility] Active 2021-01-05 Memor ia prostatic - 01:58:28 l hyperplasi Benign 00:00: Herm wendy a prostatic 00 (disorder) hyperplasi a (disorder) Active 01/12/2008 Problem 01/05/2021 Data migrated from [employer] on 02/18/15. [facility] Inflammato Problem Active 2021-01-05 M emoria ry disease - 01:58:28 l of mucous 00:00: Krystian membrane Inflammato 00 (disorder) ry disease of mucous membrane (disorder) Active 01/12/2008 Problem 01/05/2021 Data migrated from [employer] on 02/18/15. [facility] Amnesia Problem Active 2021-01-05 Moises chio (finding) 01:58:28 l Amnesia [place] (finding) Active Problem 01/05/2021 [facility] Benign Problem Active 2021-01-05 Memor ia hypertensi 01:58:28 l on Benign [place] (disorder) hypertensi on (disorder) Active Problem 01/05/2021 Data migrated from [employer] on 02/18/15. [facility] Bipolar Problem Active 2021-01-05 Moises chio disorder 01:58:28 l (disorder) Bipolar Her pierre disorder (disorder) Active Problem 01/05/2021 Data migrated from [employer] Cent[employer] on 02/18/15. [facility] Neuro Hyperchole Problem Active 2021-01-05 M emoria sterolemia 01:58:28 l (disorder) Adalberto n Hyperchole sterolemia (disorder) Active Problem 01/05/2021 Data migrated from [employer] on 02/18/15. [facility] Neuro Hyperlipid Problem Active 2021-01-05 M emoria emia 01:58:28 l (disorder) Adalberto n Hyperlipid emia (disorder) Active Problem 01/05/2021 Data migrated from [employer] on 02/18/15. [facility] Nicotine Problem Active 2021-01-05 Mem oria dependence 01:58:28 l (disorder) Nicotine He rmann dependence (disorder) Active Problem 01/05/2021 Data migrated from [employer] Cent[employer] on 02/18/15. [facility] Proteinuri Problem Active 2021-01-05 M emoria a 01:58:28 l (finding) [place] Proteinuri a (finding) Active Problem 01/05/2021 Data migrated from Compliance Control on 02/18/15. [facility] Simple Problem Active 2021-01-05 Memor ia obesity 01:58:28 l (disorder) Simple Herm wendy obesity (disorder) Active Problem 01/05/2021 [facility] Diabetes Problem Active 2021-01-05 Mem oria mellitus 01:58:28 l type 2 Diabetes Adalberto n (disorder) mellitus type 2 (disorder) Active Problem 01/05/2021 Data migrated from Compliance Control on 02/18/15. [facility] Tremor Problem Active 2021-01-05 Memor ia (finding) 01:58:28 l Tremor [place] (finding) Active Problem 01/05/2021 [facility] Impaired Problem Active 2021-01-05 Mem oria cognition 01:58:28 l (finding) Impaired Her pierre cognition (finding) Active Problem 01/05/2021 [facility] Allergies, Adverse Reactions, Alerts Allergy Allergy Status Severity Reaction(s) Onset Inactive Treating Comm ents Source Name Type Date Date Clinician Tegretol Tegretol Active Yimi Boland Family History Family Member Diagnosis Comments Start Date Stop Date Source Natural father Stroke [facility] Social History Social Habit Start Date Stop Date Quantity Comments Source Sex Assigned At [facility] Smoking Status Start Date Stop Date Source Social History 2021-01-02 14:18:39 2021-01-02 14:18:39 [facility] Krystian Never smoker [facility] Medications Ordered Filled Start Stop Current Ordering Indication Dosage Frequency Signature Comments Components Source Medication Medication Date Date Medication? Clinician (SIG) Name Name lisinopril Yes 30 mg = 1 Me moria 30 mg oral 4-13 tab, PO, l tablet 14:34: Daily, # Krystian 00 30 tab, 0 Refill(s) 3 ML Yes 0 Memoria Insulin, 4-13 Refill(s) l Aspart, 14:34: Krystian Human 100 00 UNT/ML Pen Injector [NovoLog] 24 HR 2019-09 Yes = 1 patch, Memori a rivastigmin 0-13 TOP, l e 0.396 17:06: Daily, TO Ana nn MG/HR 00 AREA THAT Transdermal IS CLEAN/ Patch DRY/ HAIRLESS AND FREE OF REDNESS/ IRRITATION / ETIENNE/ CUTS., # 30 patch, 6 Refill(s), Pharmacy: [facility] #[id number], 180.34, cm, 07/04/20 11:51:00 CDT, Height, 107.273, kg, 07/04/20 11:51:00 CDT, W... 24 HR Yes = 1 patch, Memori a rivastigmin 3-12 TOP, l e 0.396 20:03: Daily, [place] MG/HR 00 apply to Transdermal area that Patch is [Exelon] clean/dry/ hairless & free of redness/ir ritation/b urns/cuts, # 30 patch, 4 Refill(s), Pharmacy: [facility] #[id number] 24 HR 2018-09 Yes = 1 patch, Memori a rivastigmin 1-07 TOP, l e 0.396 21:09: Daily, [place] MG/HR 00 apply to Transdermal area that Patch is [Exelon] clean/dry/ hairless & free of redness/ir ritation/b urns/cuts, # 30 patch, 4 Refill(s), Pharmacy: [facility] #[id number] 24 HR 2019- Yes = 1 patch, Memori a rivastigmin 9-26 TOP, l e 0.192 16:50: Daily, [place] MG/HR 00 apply to Transdermal area that Patch is [Exelon] clean/dry/ hairless & free of redness/ir ritation/b urns/cuts, # 30 patch, 4 Refill(s), Pharmacy: [facility] #[id number] Aspirin 81 2019- Yes 81 mg = 1 Me moria MG Enteric 9-26 tab, PO, l Coated 16:15: Daily, # [place] Tablet 00 90 tab, 3 Refill(s) atorvastati Yes 40 mg = 4 M emoria n 10 mg 9-26 tab, PO, l oral tablet 16:15: Daily, 0 He rmann 00 Refill(s) bisacodyl 5 2018-0 Yes 10 mg = 2 M emoria mg oral - tab, PO, l enteric 16:15: Daily, PRN Herm wendy coated 00 Constipati tablet on, # 20 tab, 0 Refill(s) diazepam 5 2019 Yes 5 mg = 1 Mem oria mg oral -26 tab, PO, l tablet 16:15: Bedtime, 0 Ana nn 00 Refill(s) FLUoxetine Yes 20 mg = 1 Me moria 20 mg oral - tab, PO, l tablet 16:15: Daily, # [place] 00 30 tab, 0 Refill(s) glimepiride Yes 2 mg = 1 Me moria 2 mg oral - tab, PO, l tablet 16:15: QID, 0 Krystian 00 Refill(s) Insulin 0 Yes SUB-Q, Memoria Glargine 06-17 Daily, 0 l 100 UNT/ML 16:15: Refill(s) He rmann Injectable 00 Solution FLUoxetine Yes 20mg QD Take [address] (PROZAC) 20 8-09 by mouth Luke [facility] - MG tablet 11:57: daily. Medica l 57 Center diazePAM Yes 5mg Take [address] [facility] (VALIUM) 5 8-09 by mouth [facility] - MG tablet 11:57: every Medical 57 night as Center needed for Anxiety. primidone Yes 50mg QD Take [address] [facility] (MYSOLINE) 8-09 by mouth [facility] - 50 MG 11:57: daily. Medical tablet 57 Center insulin 0 Yes 8U QD Inject [facility] glargine 04-30 8-12 [facility] - (LANTUS) 11:57: subcutaneo Med ical 100 unit/mL 57 usly Center injection nightly Use as directed . metoprolol 20190 Yes 100mg QD Take [address] (LOPRESSOR) 8-09 mg by [facility] - 100 MG 11:57: mouth Medical tablet 57 daily. Center glimepiride 0 Yes 2mg Q.25D Take [address] [facility] (AMARYL) 2 8-09 by mouth 4 [facility] - MG tablet 11:57: (four) Medica l 57 times Center daily. lisinopril 0 Yes 20mg QD Take [address] (PRINIVIL,Z 04-30 by mouth Luke [facility] - ESTRIL) 20 11:57: daily. Medic al MG tablet 57 Center aspirin 81 2019- No 81mg QD Take [address] [facility] MG EC 04-30 tablet (81 [facility] - tablet 00:00: 23:59 mg total) Medic al 00 :00 by mouth Center daily. atorvastati 2019- No 40mg QD Take [address] [facility] n (LIPITOR) 04-29 tablets Luke s - 10 MG 00:00: 23:59 (40 mg Medical tablet 00 :00 total) by Center mouth nightly. Vital Signs Vital Name Observation Time Observation Value Comments Source Systolic (mm Hg) 2021-01-02 14:18:00 Moises rial [place] Diastolic (mm Hg) 2021-01-02 14:18:00 Mem orial [place] Heart Rate 2021-01-02 14:18:00 Memorial Krystian Respitory Rate 2021-01-02 14:18:00 Memori al Krystian Weight 2021-01-02 14:18:00 [facility] [place] Systolic (mm Hg) 2020-07-04 16:51:00 Moises rial Krystian Diastolic (mm Hg) 2020-07-04 16:51:00 Mem orial Krystian Heart Rate 2020-07-04 16:51:00 Memorial [place]ryst[place] Respitory Rate 2020-07-04 16:51:00 Memori al [place] Height 2020-07-04 16:51:00 180.34 cm Memorial [place]ian Weight 2020-07-04 16:51:00 [facility] [place] BMI Calculated 2020-07-04 16:51:00 Memori al Krystian Respitory Rate 2019-12-02 19:31:00 Memori al [place] Height 2019-12-02 19:31:00 180.34 cm [facility] [place] Weight 2019-12-02 19:31:00 [facility] Krystian BMI Calculated 2019-12-02 19:31:00 Memori al Krystian Systolic (mm Hg) 2019-12-02 19:31:00 Moises rial [place] Diastolic (mm Hg) 2019-12-02 19:31:00 Mem orial Krystian Heart Rate 2019-12-02 19:31:00 [facility] [place] Systolic (mm Hg) 2019-07-29 20:56:00 Moises rial [place] Diastolic (mm Hg) 2019-07-29 20:56:00 Mem orial Krystian Heart Rate 2019-07-29 20:56:00 Memorial [place] Respitory Rate 2019-07-29 20:56:00 Memori al Krystian Height 2019-07-29 20:56:00 177.8 cm [facility] [place] Weight 2019-07-29 20:56:00 [facility] [place] BMI Calculated 2019-07-29 20:56:00 Memori al [place] Systolic (mm Hg) 2019-06-17 15:55:00 Moises rial Krystian Diastolic (mm Hg) 2019-06-17 15:55:00 Mem orial [place] Heart Rate 2019-06-17 15:55:00 [facility] [place] Respitory Rate 2019-06-17 15:55:00 Memori al Krystian Height 2019-06-17 15:55:00 180.34 cm Memorial [place]rystian Weight 2019-06-17 15:55:00 [facility] [place] BMI Calculated 2019-06-17 15:55:00 Memori al [place] Procedures This patient has no known procedures. Plan of Care Planned Activity Planned Date Details Comments Source Future Scheduled 2022-04-[address] [facility] - Test 00:00:00 (procedure) [code = [facility] [id number]] Future Scheduled 2020-05-[address] [facility] - Test 00:00:00 (#1) [code = [facility] INFLUENZA VACCINE (#1)] Future Scheduled 2019-09-[address] [facility] - Test 00:00:00 WELLNESS (YEAR 2 or [facility] FIRST YEAR if no IPPE) [code = MEDICARE ANNUAL WELLNESS (YEAR 2 or FIRST YEAR if no IPPE)] Future Scheduled [address] [facility] - Test 00:00:00 malignant neoplasm Medical C enter of colon (procedure) [code = 565489143] Encounters Start End Encounter Admission Attending Care Care Encounter Source Date/Time Date/Time Type Type Clinicians Facility Department ID 2021-01-02 2021-01-02 Outpatient TIMUR Dill [id number] 09:00:00 23:59:59 Alex Rivas 2020-07-04 2020-07-04 Outpatient TIMUR Dill [id number] 11:45:00 23:59:59 Alex 12 Rob 2020-03-22 2020-03-22 Outpatient TIMUR DillER [id number] 14:15:00 14:15:00 Alex 10 Rob 2020-03-22 2020-03-22 Outpatient TIMUR DillER [id number] 14:15:00 14:15:00 Alex 11 Rob 2019-12-02 2019-12-02 Outpatient TIMUR DillER [id number] 14:45:00 23:59:59 Alex 09 Rob 2019-07-29 2019-07-29 Outpatient TIMUR DillER [id number] 14:45:00 23:59:59 Alex 08 Rob 2019-06-17 2019-06-17 Outpatient TIMUR Dill [id number] 11:00:00 23:59:59 Alex 07 [employer] Results Test Description Test Time Test Comments Results Result Comments Source POCT-GLUCOSE METER 2019-04-30 09:12:00 Test Item Value Reference Range Interpretation Comme nts POC-GLUCOSE METER ([employer]) (test 194 mg/dL 70-110 H [facility] [address] [facility] code = 1538) [facility] 7703 0 POCT-GLUCOSE [id number] 21:24:00 Test Item Value Reference Range Interpretation Comments POC-GLUCOSE METER 145 mg/dL 70-110 H TESTED AT [facility] [address] ([employer]) (test code = GIAN R [facility] 1538) [id number] MR, BRAIN, WITHOUT [id number] 19:11:00FINAL REPORT MR, BRAIN, WITHOUT CONTRAST, MR, [...] arteries: Normal flow-related enhancement within the bilateral CANDLE WRAPPER P1-P2 segments without flow-limiting stenosisAdditional findings: None. [...] MDReport Verified Date/Time: 04/29/2019 19:11:42 Reading Location: [address] Neuro Reading Room MR, MRA, BRAIN, WITHOUT [id number] 19:11:00FINAL REPORT MR, BRAIN, WITHOUT CONTRAST, MR, [...] arteries: Normal flow-related enhancement within the bilateral CANDLE WRAPPER P1-P2 segments without flow-limiting stenosisAdditional findings: None. [...] MDReport Verified Date/Time: 04/29/2019 19:11:42 Reading Location: [address] Neuro Reading Room MR, MRA, NECK, WITHOUT IV [id number] 19:11:00FINAL REPORT MR, BRAIN, WITHOUT CONTRAST, MR, [...] arteries: Normal flow-related enhancement within the bilateral CANDLE WRAPPER P1-P2 segments without flow-limiting stenosisAdditional findings: None. [...] MDReport Verified Date/Time: 04/29/2019 19:11:42 Reading Location: [address] Neuro Reading Room POCT-GLUCOSE [id number] 17:21:00 Test Item Value Reference Range Interpretation Comments POC-GLUCOSE METER 82 mg/dL 70-110 TESTED AT [place] [address] ([facility]) (test code = [facility] [address] 1538) POCT-GLUCOSE [id number] 11:55:00 Test Item Value Reference Range Interpretation Comments POC-GLUCOSE METER 130 mg/dL 70-110 H TESTED AT [place] [address] ([facility]) (test code = [facility] 1538) [address] [id number] 11:06:00 Test Item Value Reference Range Interpretation Comments RPR SCREEN ([facility]) (test code = Nonreactive Nonreactive 420) T4, [id number] 09:15:00 Test Item Value Reference Range Interpretation Comments FREE T4 ([facility]) (test code = 655) 1.19 ng/dL 0.70-1.48 HEMOGLOBIN [id number] 09:02:00 Test Item Value Reference Range Interpretation Comments HEMOGLOBIN A1C (BEAKER) (test code = 9.7 % 4.3-6.1 H 368) C-REACTIVE [id number] 07:45:00 Test Item Value Reference Range Interpretation Comments C-REACTIVE PROTEIN (BEAKER) (test 0.21 mg/dL 0.00-0.50 code = 676) FastingBASIC METABOLIC [id number] 07:30:00 Test Item Value Reference Range Interpretation [...] APPLICABLE FOR DIALYSIS PATIEN TS. FastingHEPATIC FUNCTION [id number] 07:30:00 Test Item Value Reference Range Interpretation [...] (test code = 42 U/L 6-55 347) FastingLIPID [id number] 07:30:00 Test Item Value Reference Range Interpretation [...] Borderline 130-159 High 160-189 Very High >=190 [id number] 07:22:00 Test Item Value Reference Range Interpretation Comments HOMOCYSTEINE (BEAKER) (test code = 8.2 umol/L 5.1-15.4 642) TSH/FREE T4 IF [id number] 07:21:00 Test Item Value Reference Range Interpretation Comments THYROID STIMULATING HORMONE 0.00 uIU/mL 0.35-4.94 L (BEAKER) (test code = 772) VITAMIN B12 AND [id number] 07:03:00 Test Item Value Reference Range Interpretation Comments VITAMIN B12 (BEAKER) (test code = 295 pg/mL 213-816 774) FOLATE (BEAKER) (test code = 362) 16.3 ng/mL >=7.0 TROPONIN [id number] 06:25:00 Test Item Value Reference Range Interpretation [...] acidosis, acute neurological disease, and persistent tachyarrhythmia.FastingPROTHROMBIN [id number] 05:45:00 Test Item Value Reference Range Interpretation [...] mechanical heart valves.CBC W/PLT COUNT & AUTO [id number] 05:42:00 Test Item Value Reference Range Interpretation [...] % 0-1 PERCENT (BEAKER) (test code = 4054)
--- NOTE | 2021-01-26 18:27 | EDPHYS ---
Physician Documentation [facility] Name: Pee Lopez Age: 60 yrs Sex: Male : 1960 Arrival Date: 01/26/2021 Time: 15:50 Bed 12 Private MD: DEDRA Physician Blake Alex HPI: 01/26 18:19 This 60 yrs old Black Male presents to ER via Ambulatory with complaints of Insect Bite.chary Historical: - Allergies: 15:55 No Known Allergies; sv - PMHx: 15:55 Alzheimers; Diabetes - IDDM; High Cholesterol; Bipolar disorder; bowel obstruction; sv Hypertension; benign tremors; TIA; - PSHx: 15:55 Appendectomy; situs inversus surgery; abdominal surgery; sv - Immunization history:: Client reports receiving the 2nd dose of the Covid vaccine, Client reports receiving the 1st dose of the Covid vaccine. - Social history:: Smoking status: Patient denies any tobacco usage or history of. - Family history:: not pertinent. ROS: 18:20 Constitutional: Negative for fever, chills, and weight loss, Eyes: Negative for injury, chary pain, redness, and discharge, ENT: Negative for injury, pain, and discharge, Neck: Negative for injury, pain, and swelling, Cardiovascular: Negative for chest pain, palpitations, and edema, Respiratory: Negative for shortness of breath, cough, wheezing, and pleuritic chest pain, Abdomen/GI: Negative for abdominal pain, nausea, vomiting, diarrhea, and constipation, Back: Negative for injury and pain, : Negative for injury, bleeding, discharge, and swelling, Neuro: Negative for headache, weakness, numbness, tingling, and seizure, Psych: Negative for depression, anxiety, suicide ideation, homicidal ideation, and hallucinations, Allergy/Immunology: Negative for hives, rash, and allergies, Endocrine: Negative for neck swelling, polydipsia, polyuria, polyphagia, and marked weight changes, Hematologic/Lymphatic: Negative for swollen nodes, abnormal bleeding, and unusual bruising. 18:20 MS/extremity: Positive for erythema, pain, swelling, tenderness, of the dorsal aspect of left forearm. Exam: 18:20 Constitutional: This is a well developed, well nourished patient who is awake, alert, chary and in no acute distress. Head/Face: Normocephalic, atraumatic. Eyes: Pupils equal round and reactive to light, extra-ocular motions intact. Lids and lashes normal. Conjunctiva and sclera are non-icteric and not injected. Cornea within normal limits. Periorbital areas with no swelling, redness, or edema. ENT: Nares patent. No nasal discharge, no septal abnormalities noted. Tympanic membranes are normal and external auditory canals are clear. Oropharynx with no redness, swelling, or masses, exudates, or evidence of obstruction, uvula midline. Mucous membranes moist. Neck: Trachea midline, no thyromegaly or masses palpated, and no cervical lymphadenopathy. Supple, full range of motion without nuchal rigidity, or vertebral point tenderness. No Meningismus. Chest/axilla: Normal chest wall appearance and motion. Nontender with no deformity. No lesions are appreciated. Cardiovascular: Regular rate and rhythm with a normal S1 and S2. No gallops, murmurs, or rubs. Normal PMI, no JVD. No pulse deficits. Respiratory: Lungs have equal breath sounds bilaterally, clear to auscultation and percussion. No rales, rhonchi or wheezes noted. No increased work of breathing, no retractions or nasal flaring. Abdomen/GI: Soft, non-tender, with normal bowel sounds. No distension or tympany. No guarding or rebound. No evidence of tenderness throughout. Back: No spinal tenderness. No costovertebral tenderness. Full range of motion. Neuro: Awake and alert, GCS 15, oriented to person, place, time, and situation. Cranial nerves II-XII grossly intact. Motor strength 5/5 in all extremities. Sensory grossly intact. Cerebellar exam normal. Normal gait. Psych: Awake, alert, with orientation to person, place and time. Behavior, mood, and affect are within normal limits. 18:20 Skin: cellulitis, that is mild, induration, that is mild is noted, injury, bite(s), deep. Vital Signs: 15:55 BP 121 / 90; Pulse 87; Resp 18; Temp 98.1; Pulse Ox 99% ; Weight 104.33 kg; Height 5 sv ft. 11 in. (180.34 cm); 15:55 Body Mass Index 32.08 (104.33 kg, 180.34 cm) sv MDM: 18:11 Patient medically screened. chary 18:20 Differential diagnosis: cellulitis, abscess, allergic reaction, cellulitis, insect chary bite, abrasion. Rabies Status: Rabies immunization is not indicated. Data reviewed: vital signs, nurses notes. Data interpreted: school bus monitor: rate is 87 beats/min, rhythm is regular. Test interpretation: by ED physician or midlevel provider:. Counseling: I had a detailed discussion with the patient and/or guardian regarding: the historical points, exam findings, and any diagnostic results supporting the discharge/admit diagnosis. Administered Medications: 18:32 Drug: Benadryl (diphenhydrAMINE) 25 mg Route: PO; ss 18:51 Follow up: Response: No adverse reaction; Medication administered at discharge. 18:32 Drug: Pepcid (famotidine) 40 mg Route: PO; ss 18:50 Follow up: Response: No adverse reaction; Medication administered at discharge. 18:32 Drug: Tetanus-Diphtheria Toxoid Adult 0.5 ml {[employer]: [employer]. Exp: 03/13/2022. Lot #: [id number]. } Route: IM; Site: right deltoid; 18:50 Follow up: Response: No adverse reaction; Medication administered at discharge. 18:32 Drug: Bactrim (trimethoprim-sulfamethoxazole) (160 mg-800 mg (DS) 1 tablet Route: PO; ss 18:49 Follow up: Response: No adverse reaction; Medication administered at discharge. 18:32 Drug: Doxycycline 200 mg Route: PO; 18:49 Follow up: Response: No adverse reaction 18:32 Drug: Bactroban (mupirocin) Ointment 2 % 1 application Route: Topical; Site: affected ss area; Disposition: 01/26/21 18:27 Discharged to Home. Impression: Insect bite (nonvenomous) of forearm, Type 1 diabetes mellitus, Cellulitis and acute lymphangitis of other parts of limb - left forearm. - Condition is Stable. - Discharge Instructions: Insect Bite, [id number], Insect Bite, Cellulitis, Adult, [id number], Type 1 Diabetes Mellitus, Self Care, Adult, [id number]-[id number]. - Prescriptions for Bactroban 2 % Topical Ointment - Apply to affected area 1 application by TOPICAL route every 12 hours; 30 gram. Benadryl 25 mg Oral Capsule - take 1 capsule by ORAL route every 6 hours As needed; 30 tablet. Doxycycline Hyclate 100 mg Oral Tablet - take 1 tablet by ORAL route every 12 hours; 20 tablet. Bactrim DS 800- 160 mg Oral Tablet - take 1 tablet by ORAL route every 12 hours for 10 days; 20 tablet. Pepcid 20 mg Oral Tablet - take 1 tablet by ORAL route once daily; 20 tablet. - Medication Reconciliation Form, Thank You Letter, Antibiotic Education, Prescription Opioid Use form. - Follow up: Private Physician; When: 2 - 3 days; Reason: Recheck today's complaints, Continuance of care, Re-evaluation by your physician. - Problem is new. - Symptoms have improved. Signatures: Vivi Truong RN RN Blake Triplett MD MD cha Smirch, Shelby, RN RN ss Corrections: (The following items were deleted from the chart) 18:47 18:[address] [facility] 18:55 18:27 01/26/2021 18:27 Discharged to Home. Impression: Insect bite (nonvenomous) of ss forearm; Type 1 diabetes mellitus; Cellulitis and acute lymphangitis of other parts of limb - left forearm. Condition is Stable. Forms are Medication Reconciliation Form, Thank You Letter, Antibiotic Education, Prescription Opioid Use. Follow up: Private Physician; When: 2 - 3 days; Reason: Recheck today's complaints, Continuance of care, Re-evaluation by your physician. Problem is new. Symptoms have improved. [facility]
--- NOTE | 2021-01-26 18:27 | ER ---
Nurse's Notes [facility] Name: Pee Lopez Age: 60 yrs Sex: Male : 1960 Arrival Date: 01/26/2021 Time: 15:50 Bed 12 Private MD: Diagnosis: Insect bite (nonvenomous) of forearm;Type 1 diabetes mellitus;Cellulitis and acute lymphangitis of other parts of limb-left forearm Presentation: 01/26 15:54 Chief complaint: Patient states: "Insect bite that looks like its getting infected. Dr edgard Hernandez sent me here." Unknown insect. Redness and swelling noted to left forearm. Coronavirus screen: Client denies travel out of the [place] in the last 14 days. At this time, the client does not indicate any symptoms associated with coronavirus-19. Ebola Screen: No symptoms or risks identified at this time. Risk Assessment: Do you want to hurt yourself or someone else? Patient reports no desire to harm self or others. Onset of symptoms was January 25, 2021. 15:54 Method Of Arrival: Ambulatory sv 15:54 Acuity: VINCE 4 sv 15:55 Initial Sepsis Screen: Does the patient meet any 2 criteria? No. Patient's initial sv sepsis screen is negative. Does the patient have a suspected source of infection? No. Patient's initial sepsis screen is negative. Triage Assessment: 15:57 Bite description: bite sustained to dorsal aspect of left forearm was sustained 1 day sv ago. by an unknown animal, animal information: vaccination(s) is unknown. General: Appears in no apparent distress. comfortable, Behavior is calm, cooperative, appropriate for age. Pain: Complains of pain in dorsal aspect of left forearm. Neuro: Level of Consciousness is awake, alert, obeys commands, Oriented to person, place, time, situation, Gait is steady. Respiratory: Respiratory effort is even, unlabored. Historical: - Allergies: 15:55 No Known Allergies; sv - PMHx: 15:55 Alzheimers; Diabetes - IDDM; High Cholesterol; Bipolar disorder; bowel obstruction; sv Hypertension; benign tremors; TIA; - PSHx: 15:55 Appendectomy; situs inversus surgery; abdominal surgery; sv - Immunization history:: Client reports receiving the 2nd dose of the Covid vaccine, Client reports receiving the 1st dose of the Covid vaccine. - Social history:: Smoking status: Patient denies any tobacco usage or history of. - Family history:: not pertinent. Screenin:10 Abuse screen: Denies threats or abuse. Denies injuries from another. Nutritional ss screening: No deficits noted. Tuberculosis screening: Never had TB. Fall Risk None identified. Assessment: 18:10 General: Appears in no apparent distress. comfortable, Behavior is calm, cooperative. ss General: Pt believes that he got bitten by an insect yesterday. Area of bumpy rash noted to L forearm. Size of half dollar. Redness noted from L wrist all the way up almost to elbow. . Pain: Denies pain. Neuro: Level of Consciousness is awake, alert, obeys commands, Oriented to person, place, time, situation. Cardiovascular: Capillary refill < 3 seconds is brisk in bilateral fingers Patient's skin is warm and dry. Cardiovascular: Pulses are palpable in right radial artery and left radial artery. Respiratory: Airway is patent Respiratory effort is even, unlabored, Respiratory pattern is regular, symmetrical. GI: Patient currently denies diarrhea, nausea, vomiting. : No signs and/or symptoms were reported regarding the genitourinary system. EENT: Nares are clear Oral mucosa is moist. Derm: Skin is intact, is healthy with good turgor, Skin is dry, Skin is pink, warm \\T\\ dry. normal. Musculoskeletal: Swelling present in dorsal aspect of left forearm. Vital Signs: 15:55 BP 121 / 90; Pulse 87; Resp 18; Temp 98.1; Pulse Ox 99% ; Weight 104.33 kg; Height 5 sv ft. 11 in. (180.34 cm); 15:55 Body Mass Index 32.08 (104.33 kg, 180.34 cm) sv ED Course: 15:50 Patient arrived in ED. ds1 15:55 Triage completed. sv 15:55 Arm band placed on. sv 18:10 Patient has correct armband on for positive identification. Bed in low position. Call ss light in reach. 18:11 Blake Alex MD is Attending Physician. [facility] 18:31 Ariana Baker RN is Primary Nurse. ss 18:55 No provider procedures requiring assistance completed. Patient did not have IV access ss during this emergency room visit. Administered Medications: 18:32 Drug: Benadryl (diphenhydrAMINE) 25 mg Route: PO; 18:51 Follow up: Response: No adverse reaction; Medication administered at discharge. 18:32 Drug: Pepcid (famotidine) 40 mg Route: PO; ss 18:50 Follow up: Response: No adverse reaction; Medication administered at discharge. 18:32 Drug: Tetanus-Diphtheria Toxoid Adult 0.5 ml {[employer]: [employer] Exp: 03/13/2022. Lot #: [id number]. } Route: IM; Site: right deltoid; 18:50 Follow up: Response: No adverse reaction; Medication administered at discharge. 18:32 Drug: Bactrim (trimethoprim-sulfamethoxazole) (160 mg-800 mg (DS) 1 tablet Route: PO; ss 18:49 Follow up: Response: No adverse reaction; Medication administered at discharge. 18:32 Drug: Doxycycline 200 mg Route: PO; ss 18:49 Follow up: Response: No adverse reaction 18:32 Drug: Bactroban (mupirocin) Ointment 2 % 1 application Route: Topical; Site: affected ss area; Outcome: 18:27 Discharge ordered by [facility] 18:55 Discharged to home ambulatory. 18:55 Condition: good 18:55 Discharge instructions given to patient, Instructed on discharge instructions, follow up and referral plans. medication usage, Demonstrated understanding of instructions, follow-up care, medications, Prescriptions given X x 5 18:55 Patient left the ED. Signatures: Vivi Truong RN RN sv Anderson, Corey, MD MD cha Sanford, Demi ds1 Ariana Baker RN RN Corrections: (The following items were deleted from the chart) 15:58 15:55 Resp 18bpm; Pulse Ox 99%; Temp 98.1F; 104.33 kg; Height 5 ft. 11 in.; BMI: 32.0; [facility]
[2021-01-26] MEDS ORDERED: SMZ./TMP. 800/160 MG TABLET ONE (18:54)
[2021-01-26] MEDS ORDERED: FAMOTIDINE 20 MG TAB ONE (18:54)
[2021-01-26] MEDS ORDERED: MUPIROCIN 2% OINT 22GM TUBE TOP ONE (18:54)
[2021-01-26] MEDS ORDERED: DOXYCYCLINE 100 MG CAP PO ONE (18:54)
[2021-01-26] MEDS ORDERED: DIPHENHYDRAMINE 25 MG TAB/CAP ONE (18:54)
[2021-01-26] MEDS ORDERED: TETANUS & DIPHTHERIA TOX,ADULT 0.5 ML VIAL ONE (18:55)
[2021-01-26 19:00] VITALS: BP 121/90; TEMP 98.1; O2SAT 99
== END 2021-01-26 18:55 | disposition home or self-care (01) ==
LOC: ER 15:47
DX: L03.114 Cellulitis of left upper limb (principal); L03.124 Acute lymphangitis of left upper limb; E10.9 Type 1 diabetes mellitus without complications; I10 Essential (primary) hypertension; G30.9 Alzheimer's disease, unspecified; F02.80 Dementia in other diseases classified elsewhere, unspecified severity, without behavioral disturbance, psychotic disturbance, mood disturbance, and anxiety; Z23 Encounter for immunization
CPT/HCPCS: 90471; 90714; 99283